=== PATIENT | female | born 1990 | race Caucasian/White ===

== ENCOUNTER 2022-09-14 01:29 | Day surgery (SDC) | payer OTHER, SELFPAY ==
[2022-09-05 08:30] VITALS: BMI 20.7
--- NOTE | 2022-09-05 08:38 | PC.NURSE ---
Report to the Outpatient Waiting Room, entrance under the green pavilion located off [facility], at time _1000__ on date _09/14/22. Planned Procedure Time: _1200_. Time changes happen often and if your time is changed the preop area will call you the afternoon before. - You and your visitor will be asked to self-screen and do not enter if you have any COVID symptoms. - A mask is optional within the hospital at this time. Patients may have clear liquids (water, carbonated beverages, clear teas, apple juice) until 3 hours prior to surgery with a maximum of 20 ounces. - No food from midnight until time of surgery - Infants may have breast milk until 4 hours before surgery, infant formula 6 hours prior to surgery. - Children will be allowed to drink immediately following surgery. If applicable, please bring a bottle or sippy cup to assist with drinking. Juice, water, soda, and popsicles are readily available. For infants on formula, please bring formula the day of surgery. Pacifiers are allowed. Take the following medications with a SIP of water the morning of surgery: FLUOXETINE, OLANZAPINE DO NOT STOP ANY OF YOUR OTHER PRESCRIPTION MEDICATIONS PRIOR TO SURGERY ?EXCEPT THE FOLLOWING Medications to discontinue per physician NONE Date to take last dose Please no make-up, nail cook islander, hairspray, perfume, deodorant, or body powder the day of surgery. No jewelry (including any body piercings) or valuables the day of surgery, leave them at home. Please take a shower or bath the night before, or the morning of, surgery with an antibacterial soap. Wear comfortable, loose fitting clothing. Children are encouraged to wear pajamas. - Jewelry must be removed prior to entering the operating room. Rings and piercings that are not removed may be cut off. - The hospital will not accept responsibility for valuables. - Please leave all valuables, including medications, at home the day of surgery. If you are going home after surgery, a licensed driver education instructor must drive you home. - NO public transportation without another adult if you receive anesthesia. - We recommend that an adult stay with you for 24 hours following discharge. - We also recommend that you do not drive, make important decision, drink alcoholic beverages, or take any drugs that were not prescribed by your health care provider for at least 24 hours after your discharge time. For Pediatric surgeries, we recommend two adults accompany the child home. Follow any additional instructions given to you from your surgeon. If you or anyone in your household have experienced Covid symptoms in the past week, please notify your surgeon or the nurse liaison at the phone number below for possible testing. Telephone instructions given to _PATIENT_and asked if any additional questions and then verbalized understanding. Patient advised to call surgeon office or pre surgery nurse liaison [phone] if any additional questions.
--- NOTE | 2022-09-13 12:31 | PM.IMHP ---
H&P: HPI History of Present Illness Date/Time: 09/13/22 12:31 Chief Complaint: desires permanent sterilization Narrative: 32-year-old who presents requesting permanent sterilization.? Patient is currently using NuvaRing for contraception.? Patient states she has a new male sexual partner.? Patient states her and her partner no longer desire to conceive.? Patient states her partner does not trust the NuvaRing.? Patient is not interested in any other forms of contraception.? Patient states she has thought about having a tubal for some time. Review of Systems Cardiovascular: Cardiovascular: Denies chest pain, Denies leg edema, Denies palpitations, Denies dyspnea and Denies dyspnea on exertion Respiratory: Respiratory: Denies cough, Denies dyspnea and Denies dyspnea on exertion Gastrointestinal: Gastrointestinal: Denies abdominal pain, Denies constipation, Denies diarrhea, Denies nausea and Denies vomiting Genitourinary: Genitourinary: Denies hematuria, Denies urinary frequency, Denies dysuria, Denies pelvic pain, Denies urinary incontinence and Denies vaginal discharge Neurologic: Reports system reviewed and no additional complaints, except as documented Psychiatric: Psychiatric: Reports no additional psychiatric complaints Endocrine: Endocrine: Denies palpitations PMFSH Past Medical History Medical History Anxiety Bladder diverticulitis Depression Diverticula, bladder Kidney infection UTI (urinary tract infection) Vaginal discharge Surgical History Surgical History H/O adenoidectomy H/O dilation and curettage x 2 History of hysteroscopy History of tonsillectomy Family History Family History Mother Hypertension Social History Social History Years smoked: 8 Smoking status: Current every day smoker Tobacco type: e-cigarettes/vaping Additional smoking assessment comments: CURRENT EVERYDAY VAPER Alcohol intake: current Alcohol use details: 2 PER MONTH Substance use: former Substance use type: marijuana Last use: vape Lack of Transportation: YES Lack of Food: Often True Current Housing: I Have Housing Concerned About Future Housing: YES Difficulty Paying Gas/Electric Bills: YES Difficulty Paying for Meds: YES Currently Unemployed: No Education: Associate Degree Difficulty w/ Childcare or Family Care: YES Living arrangements: with family Occupation/Education: occupation Gender identity (if verbalized by the patient): Female Sexual Orientation (if Verbalized by the Patient): Straight or Heterosexual Meds Home Medications and Allergies Home Medications Medication Instructions Recorded Confirmed Type etonogestrel 0.12 mg-ethinyl 1 vag ring vaginal ONCE #3 ea 04/12/22 09/05/22 Rx estradiol 0.015 mg/24 hr vaginal ring (NuvaRing) fluoxetine 20 mg capsule 20 mg PO DAILY 09/05/22 09/05/22 History olanzapine 5 mg tablet 5 mg PO HS 09/05/22 09/05/22 History tramadol 50 mg tablet 50 mg PO PRN PRN Pain 09/05/22 09/05/22 History Allergies Allergy/AdvReac Type Severity Reaction Status Date / Time Sulfa (Sulfonamide Allergy Intermediate RASH POSS. Verified 09/05/22 08:28 Antibiotics) RESPIR. DISTRESS Penicillins Allergy Mild RASH Verified 09/05/22 08:28 Exam Const: General: no acute distress Eyes: EOM: EOMs intact bilaterally Neck: Neck: supple Thyroid: thyroid normal Chest: Breast/axilla inspection: normal inspection of the breasts Breast/axilla palpation: normal palpation of the breasts, normal palpation of the axillae and no axillary lymphadenopathy Resp: Effort & Inspection: normal respiratory effort Auscultation: clear to auscultation bilaterally Cardio: Rate: regular rate Rhythm: regular rhythm GI: Inspection:
--- NOTE | 2022-09-13 13:39 | WPDANESEPPF ---
Anes - Initial Pre Proc Eval Procedure: Operation Date: 09/14/22 12:00 Proposed Procedures p Bilateral Laparoscopic Salpingectomy - Calos Cabral MD Date/Time: 09/13/22 13:39 Surgeon: Calos Cabral MD Pre Op Diagnosis: desires sterilization Patient Data Age: 32 Gender: F Height: 1.7 m Weight: 60 kg Allergies Allergy/AdvReac Type Severity Reaction Status Date / Time Sulfa (Sulfonamide Allergy Intermediate RASH POSS. Verified 09/14/22 10:22 Antibiotics) RESPIR. DISTRESS Penicillins Allergy Mild RASH Verified 09/14/22 10:22 Home Medications Medication Instructions Recorded Confirmed Type etonogestrel 0.12 mg-ethinyl 1 vag ring vaginal ONCE #3 ea 04/12/22 09/05/22 Rx estradiol 0.015 mg/24 hr vaginal ring (NuvaRing) fluoxetine 20 mg capsule 20 mg PO DAILY 09/05/22 09/14/22 History olanzapine 5 mg tablet 5 mg PO HS 09/05/22 09/14/22 History tramadol 50 mg tablet 50 mg PO PRN PRN Pain 09/05/22 09/05/22 History Patient hx anesthesia problems: none Family hx anesthesia problems: none Results Review: All pre-operative results and documents have been reviewed as part of the pre-operative evaluation. [facility] Past Medical History Medical History (Updated 09/13/22 @ 13:39 by Jt Alvarado DO) ADHD Anxiety Bipolar disorder Bladder diverticulitis Depression Diverticula, bladder Kidney infection UTI (urinary tract infection) Vaginal discharge Surgical History Surgical History H/O adenoidectomy H/O dilation and curettage x 2 History of hysteroscopy History of tonsillectomy Family History Family History Mother Hypertension Social History Social History Years smoked: 8 Smoking status: Current every day smoker Tobacco type: e-cigarettes/vaping Additional smoking assessment comments: CURRENT EVERYDAY VAPER Alcohol intake: current Alcohol use details: 2 PER MONTH Substance use: former Substance use type: marijuana Last use: vape Lack of Transportation: YES Lack of Food: Often True Current Housing: I Have Housing Concerned About Future Housing: YES Difficulty Paying Gas/Electric Bills: YES Difficulty Paying for Meds: YES Currently Unemployed: No Education: Associate Degree Difficulty w/ Childcare or Family Care: YES Living arrangements: with family Occupation/Education: occupation Gender identity (if verbalized by the patient): Female Sexual Orientation (if Verbalized by the Patient): Straight or Heterosexual Anes - Eval Final PreProcedure Day of Procedure 09/13/22 13:39 Patient weight: normal Heart: regular rate and rhythm Lungs: clear to auscultation Airway: Mallampati scale class II Neurological: alert and oriented Last oral intake: >/= 8 hours ASA classification: II Emergent: no Anesthetic plan: proceed Anesthesia type and monitoring: general ETT and standard monitoring Results Review: All pre-operative results and documents have been reviewed as part of the pre-operative evaluation. Informed Consent: The patient's anesthetic plan and its attendant risks and benefits were discussed with the patient/family/POA. Questions were solicited and answers provided to the satisfaction of the patient/family/POA.
[2022-09-14] VITALS (7 sets, daily range): BP systolic 110–157; BP diastolic 64–100; PULSE 71–117; RESP 9–16; TEMP 36.2–36.6; O2SAT 99–100; BMI 21.4
[2022-09-14] MEDS: LACTATED RINGERS 1,000 ML 30 ML IV CONT ×2 (10:40→13:49)
[2022-09-14] MEDS: ACETAMINOPHEN 500 MG TABLET 1000 MG PO (10:50)
[2022-09-14] MEDS: KETOROLAC 15 MG/ML VIAL (*BKC) IV PUSH (10:51)
--- NOTE | 2022-09-14 10:54 | SUR.PREOP ---
1054- Patient notified procedure start time will be delayed. Patient verbalized understanding and denying needs at this time.
--- NOTE | 2022-09-14 12:02 | WPDHPUPDATE1 ---
History and Physical Update Update Date/Time: 09/14/22 12:02 History and Physical has been reviewed, including an updated exam of the patient. There are NO changes in the patient's condition. Risks, benefits, and alternatives have been discussed and questions answered. Patient agrees to proceed with procedure.
--- NOTE | 2022-09-14 13:32 | P.OP_ITS ---
Procedure Note - Detailed Date of Procedure 09/14/22 Pre-op Diagnosis desires sterilization Post-op Diagnosis Same Procedure Performed laparoscopic bilateral salpingectomy Surgeon Calos Cabral MD Anesthesia General Indications desires permanent sterilization Findings normal appearing uterus, bilateral fallopian tubes and ovaries Description of Procedure the patient was taken to the operating room where general endotracheal anesthesia was undertaken and found to be adequate. She was then prepped and draped in the dorsal lithotomy position. A pre-operative team brief and time- out were completed. A catheter was placed to drain the bladder. Speculum was placed in the vagina and the cervix was identified. An acorn uterine manipulator was placed as well as single-tooth tenaculum on the anterior lip of the cervix. Attention was then turned to the abdomen which was anesthetized umbilical he with injected anesthetic. A 5 mm skin incision was made in the umbilicus. A 5 mm optical trocar was then placed with direct visualization of the abdominal layers during placement. The trocar stylette was removed and the camera was used to verify intra-abdominal placement.felipe was used to verify intra-abdominal placement. CO2 insufflation was then connected and The abdominal cavity was insufflated. General abdominal and pelvic survey was performed. Two other laparoscopic port site incisions were made approximately 2 cm superior and medial of the ASIS bilaterally. Both fallopian tubes were inspected and identified out to the level of the fimbriae. The Fimbriated end of the left fallopian tube was then grasped with a blunt grasper. the fallopian tube was then transected along its inferior aspect along the mesosalpinx with the LigaSure device. Transection was carried out to the fallopian tubes insertion into the uterine fundus. The fallopian tube was then completely transected from the uterus using the LigaSure device. This procedure was repeated for the right fallopian tube. Good hemostasis was maintained throughout. The transected fallopian tubes were removed from the abdomen through the 5 mm laparoscopic port. The surgical field was inspected and again could hemostasis was noted. At this point the procedure was ended. The abdomen was desufflated. All laparoscopic ports were removed from the abdomen. Abdominal incisions were closed with 4-0 Vicryl in a subcuticular fashion.. The acorn manipulator and tenaculum were removed from the vagina. The cervix was inspected and good hemostasis was obtained. Sponge, lap and needle counts were correct. The patient tolerated the procedure well. The patient was taken out of dorsal lithotomy. anesthesia was reversed. The patient was taken to PACU in stable condition. Estimated Blood Loss 10 Urine Output 100 Drains No Packing No Pathology Yes ( Bilateral fallopian tubes) Complications No immediate complications Condition Stable Disposition PACU [facility] Billing Surgery - Charge Forward: Surgery Billing
[2022-09-14] MEDS: fentaNYL CITRATE INJ (*CRX) 100 MCG/2 ML VIAL 25 MCG IV PUSH ×2 (14:12→14:15)
[2022-09-14] MEDS: oxyCODONE HCL (*CRX) 5 MG TAB IR PO (15:10)
== END 2022-09-14 15:25 | disposition home or self-care (01) ==
PROVIDERS: PCP Family Medicine; Visit Provider Student in an Organized Health Care Education/Training Program
PROC: (CPT 49320; principal; 2022-09-14 12:00)
DX: Z30.2 Encounter for sterilization (principal); N83.8 Other noninflammatory disorders of ovary, fallopian tube and broad ligament; F41.9 Anxiety disorder, unspecified; F32.A Depression, unspecified; F17.290 Nicotine dependence, other tobacco product, uncomplicated; F12.90 Cannabis use, unspecified, uncomplicated; Z79.891 Long term (current) use of opiate analgesic
CPT/HCPCS: 58661; 88302; A9270; J0330; J1100; J1885; J2250; J2405; J2704; J3010; J7030; J7120

== ENCOUNTER 2022-09-18 13:46 | Emergency (ER) | payer OTHER, MEDICAID, SELFPAY ==
--- NOTE | ~2022-09-18 | CT_ITS ---
EXAMINATION: CT abdomen pelvis w con DATE: 09/18/2022 16:56 INDICATION: Abdominal pain. Fever. Postop. TECHNIQUE: Computed tomography (CT) of the abdomen and pelvis was performed with 100 mL Omnipaque 350 intravenous contrast. Automated exposure control and iterative reconstruction technique were employe d. The dose-length product was 259.20 mGy-cm. COMPARISON: CT abdomen and pelvis 07/06/2016 FINDINGS: The visualized portions of the lung bases are clear without pneumonia or pleural effusion. The heart size is normal. No pericardial effusion. There are cysts in the liver measuring up to 6 mm. The gallbladder, spleen, pancreas, adrenal glands, and left kidney are normal. There is a 1.8 cm hyp odense mass in right kidney with adjacent fat stranding, consistent with pyelonephritis. There is an umbilical hernia containing fat. There are no dilated loops of bowel. The appendix is normal. There a re no pathologically enlarged lymph nodes. There is no ascites. There is diffuse bladder wall thickening, consistent with cystitis. There is mild lumbar spondylosis. IMPRESSION: 1. Cystitis and right-sided pyelonephritis. Reviewed, dictated and finalized at location A.
--- NOTE | ~2022-09-18 | XR_ITS ---
EXAMINATION: XR chest 2V DATE: 09/18/2022 16:26 INDICATION: Fever. Postop. TECHNIQUE: Frontal and lateral views of the chest were obtained. COMPARISON: Chest 2 views 01/04/2018 FINDINGS: There is no pneumonia, pleural effusion, or pneumothorax. The heart size is normal. IMPRESSION: 1. No acute cardiopulmonary disease. Reviewed, dictated and finalized at location A.
[2022-09-18 13:48] VITALS: BP 130/65; PULSE 104; RESP 20; TEMP 38; O2SAT 100
[2022-09-18 15:04] VITALS: BP 113/75; PULSE 116; RESP 22; O2SAT 100
[2022-09-18 15:09] LABS: Hematocrit 39.3 % (37.0-47.0); Hemoglobin 12.7 g/dL (12.0-15.0); Mean Corpuscular HGB Conc 32.3 g/dl (32-36); Mean Corpuscular Hemoglobin 27.7 pg (26-34); Mean Corpuscular Volume 85.8 fl (80-100); Mean Platelet Volume 9.1 fl (7.4-10.4); Platelet Count Result 370 k/mm3 (150-375); Red Blood Count 4.58 M/mm3 (4.2-5.4); Red Cell Distribution Width 13.7 % (11.5-14.5); White Blood Count 13.2 K/mm3 (4.5-10.0)
[2022-09-18 15:21] LABS: Alanine Aminotransferase 22 U/L (6-35); Albumin Level 4.1 g/dL (3.5-5.1); Alkaline Phosphatase 54 U/L (38-126); Anion Gap 6 mmol/L (8-16); Aspartate Amino Transferase 26 U/L (14-36); Bilirubin,Total 0.6 mg/dL (0.2-1.3); Blood Urea Nitrogen 15 mg/dL (7-17); Calcium 8.8 mg/dL (8.4-10.2); Carbon Dioxide 26 mmol/L (22-30); Chloride 99 mmol/L (98-107); Estimated CRCL calculation 92 ml/min; Estimated Glomerular Filt Rate > 60; Glucose 109 mg/dL (65-110); Lipase 38 U/L (23-300); Potassium 3.6 mmol/L (3.4-5.0); Sodium 131 mmol/L (137-145)
[2022-09-18] MEDS: ACETAMINOPHEN 500 MG TABLET 1000 MG PO (15:29)
--- NOTE | 2022-09-18 15:38 | ED.GENADULT ---
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 Cabral performed a bilateral removal of her ovaries and she had gone home and was otherwise doing well until yesterday she developed a fever of 102 for which she took Motrin and improved. However, the fever returned, prompting her to seek further evaluation. Patient notes that she last took Motrin today at 10 AM. Patient admits to a couple episodes of non-bloody and non-bilious emesis yesterday and today. Patient admits to being able to tolerate PO and has otherwise been able to maintain hydration. Patient denies diarrhea. Patient states that she has an extensive history of urinary tract infections and she called her primary care physician today and they prescribed her Macrobid. However, she hasn?t picked it up yet and came here because this felt like it was more than her history of urinary tract infection. Patient does admit to dysuria over the past couple days. Patient denies hematuria, urinary urgency, urinary frequency, lower extremity, swelling, cough, chest pain, shortness of breath, sore throat, rhinorrhea, rash, abnormal, vaginal discharge, vaginal bleeding. Patient admits to a mild amount of generalized lower abdominal discomfort, and which she describes this as a sore feeling, but has not associated with anything, making it better nor worse, rather it appears to constantly be present at a low intensity. Patient denies radiation of the pain. Related Data Home Medications Medication Instructions Recorded Confirmed fluoxetine 20 mg capsule 20 mg PO DAILY 09/05/22 09/14/22 olanzapine 5 mg tablet 5 mg PO HS 09/05/22 09/14/22 tramadol 50 mg tablet 50 mg PO PRN PRN Pain 09/05/22 09/05/22 Allergies Allergy/AdvReac Type Severity Reaction Status Date / Time Sulfa (Sulfonamide Allergy Intermediate RASH POSS. Verified 09/18/22 14:03 Antibiotics) RESPIR. DISTRESS Penicillins Allergy Mild RASH Verified 09/18/22 14:03 [facility] Past Medical History Medical History ADHD Anxiety Bipolar disorder Bladder diverticulitis Depression Diverticula, bladder Kidney infection UTI (urinary tract infection) Vaginal discharge Surgical History Surgical History H/O adenoidectomy H/O dilation and curettage x 2 History of hysteroscopy History of tonsillectomy Family History Family History Mother Hypertension Social History Social History Years smoked: 8 Smoking status: Current every day smoker Tobacco type: e-cigarettes/vaping Additional smoking assessment comments: CURRENT EVERYDAY VAPER Alcohol intake: current Alcohol use details: 2 PER MONTH Substance use: former Substance use type: marijuana Last use: vape Lack of Transportation: YES Lack of Food: Often True Current Housing: I Have Housing Concerned About Future Housing: YES Difficulty Paying Gas/Electric Bills: YES Difficulty Paying for Meds: YES Currently Unemployed: No Education: Associate Degree Difficulty w/ Childcare or Family Care: YES Living arrangements: with family Occupation/Education: occupation Gender identity (if verbalized by the patient): Female Sexual Orientation (if Verbalized by the Patient): Straight or Heterosexual Exam Const: General: ill appearing (mildly) Orientation/consciousness: patient oriented x3 HENMT: Head: normal to inspection Mouth: Yes Normal oral and palatal mucosa present and Yes dry mucous membranes Throat: posterior oropharynx normal Eyes: Conjunctivae: conjunctivae norm
[2022-09-18 15:46] LABS: Band Neutrophils Percent 5 % (0-6); Lymphocytes Absolute Manual 1.05 K/mm3 (1.1-4.5); Monocytes Absolute Manual 1.05 K/mm3 (0.1-0.90); Monocytes Percent Manual 8 % (3-9); Neutrophils Absolute Manual 11.08 K/mm3 (1.7-7.2); Neutrophils Percent Manual 79 % (46-73); Platelet Estimate Adequate (Adequate); Total Cells Counted 100
[2022-09-18 15:47] LABS: Schistocytes None Seen (NORMAL)
[2022-09-18] MEDS: MORPHINE SULFATE (*CRX) 4 MG/ML INJ IV PUSH (16:15)
[2022-09-18 16:21] LABS: Partial Thromboplastin Time 27.5 SECONDS (22.3-36.8); Prothrombin Time 13.8 Seconds (11.1-14.7)
[2022-09-18 16:26] LABS: Alanine Aminotransferase 21 U/L (6-35); Albumin Level 3.9 g/dL (3.5-5.1); Alkaline Phosphatase 48 U/L (38-126); Anion Gap 6 mmol/L (8-16); Aspartate Amino Transferase 26 U/L (14-36); Bilirubin,Total 0.5 mg/dL (0.2-1.3); Blood Urea Nitrogen 15 mg/dL (7-17); CRP 4.4 mg/dL (<1.0); Calcium 8.6 mg/dL (8.4-10.2); Carbon Dioxide 22 mmol/L (22-30); Chloride 101 mmol/L (98-107); Estimated CRCL calculation 106 ml/min; Estimated Glomerular Filt Rate > 60; Glucose 116 mg/dL (65-110); Lipase 36 U/L (23-300); Potassium 3.6 mmol/L (3.4-5.0); Sodium 129 mmol/L (137-145)
[2022-09-18 16:28] LABS: Appearance Urine Cloudy (Clear); Bacteria Urine 4+ /hpf; Bilirubin Urine Negative (Negative); Blood Urine 1+ (Negative); Color Urine Yellow (Yellow); Glucose Urine UA Negative (Negative); Ketones Urine Negative (Negative); Leukocyte Esterase Ur 3+ LEU/UL (Negative); Nitrate Urine Negative (Negative); Non Pathogenic Casts 0-2; Protein Urine 1+ mg/dL (Negative); RBC Urine 21-50 /hpf (0-2); Specific Grav Ur 1.021 (1.001-1.035); Squamous Epithelial Cell Urine Many /hpf (Few); WBC Urine >100 /hpf; pH Urine 7.5 (5.0-9.0)
[2022-09-18 16:34] LABS: Add Urine Microscopic? YES
[2022-09-18 16:54] LABS: SARS-CoV-2 RNA PCR Negative (Negative)
[2022-09-18] MEDS: levoFLOXacin 750 MG/D5W 150 ML 750 MG/150 ML BAG 100 MG IVPB (17:19)
[2022-09-18 17:45] VITALS: BP 105/63; PULSE 86; RESP 18; O2SAT 98
[2022-09-18] MEDS: IBUPROFEN 600 MG TABLET PO (18:37)
[2022-09-18 19:06] VITALS: BP 110/68; PULSE 66; RESP 14; TEMP 36.8; O2SAT 100
== END 2022-09-18 19:17 | disposition home or self-care (01) ==
PROVIDERS: Emergency Provider Student in an Organized Health Care Education/Training Program; PCP Family Medicine
DX: N12 Tubulo-interstitial nephritis, not specified as acute or chronic (principal); F17.290 Nicotine dependence, other tobacco product, uncomplicated; Z20.822 Contact with and (suspected) exposure to COVID-19; Z98.890 Other specified postprocedural states; Z79.899 Other long term (current) drug therapy
CPT/HCPCS: 36415; 71046; 74177; 80053; 81001; 81025; 83605; 83690; 85025; 85610; 85730; 86140; 87040; 87086; 87088; 87147; 87635; 96365; 96366; 96375; 99284; A9270; J1956; J2270; J7120; Q9967

== ENCOUNTER 2023-01-23 08:27 | Emergency (ER) | payer BC, SELFPAY ==
--- NOTE | ~2023-01-23 | CT_ITS ---
EXAMINATION: CT abdomen pelvis w con DATE: 01/23/2023 09:56 INDICATION: Abdominal pain. Nausea and vomiting. TECHNIQUE: Computed tomography (CT) of the abdomen and pelvis was performed with 100 mL Omnipaque 350 intravenous contrast. Automated exposure control and iterative reconstruction technique were employe d. The dose-length product was 257.51 mGy-cm. COMPARISON: CT abdomen and pelvis 09/18/2022 FINDINGS: The visualized portions of the lung bases demonstrate minimal atelectasis. No pleural effus ion. The heart size is normal. No pericardial effusion. There is a 7 mm cyst in the liver. The gallbl adder, spleen, pancreas, adrenal glands, and left kidney are normal. There is focal cortical thinning of right kidney. The appendix is normal. There is an umbilical hernia containing fat. There are no p athologically enlarged lymph nodes. There is no free intraperitoneal fluid. There is mild lumbar spon dylosis. IMPRESSION: 1. Umbilical hernia containing fat. Reviewed, dictated and finalized at location A. [employer]
[2023-01-23 08:55] VITALS: BP 120/81; PULSE 87; RESP 16; TEMP 37.2; O2SAT 98
[2023-01-23 09:21] LABS: Basophils Percent Auto 0.3 % (0.2-1.2); Eosinophils Percent Auto 0.2 % (0-4.4); Hematocrit 42.8 % (37.0-47.0); Hemoglobin 13.6 g/dL (12.0-15.0); Immature Granulocyte Absolute 0.07 K/mm3 (0.00-0.031); Immature Granulocyte Percent A 0.7 % (0-0.5); Lymphocytes Absolute Auto 0.22 K/mm3 (0.9-3.2); Lymphocytes Percent Auto 2.2 % (18.3-44.2); Mean Corpuscular HGB Conc 31.8 g/dl (32-36); Mean Corpuscular Hemoglobin 27.1 pg (26-34); Mean Corpuscular Volume 85.3 fl (80-100); Mean Platelet Volume 8.6 fl (7.4-10.4); Monocytes Absolute Auto 0.3 K/mm3 (0.1-0.6); Monocytes Percent Auto 3.3 % (2.6-8.5); Neutrophils Absolute Auto 9.4 K/mm3 (1.3-6.7); Neutrophils Percent Auto 93.3 % (45.5-73.1); Platelet Count Result 385 k/mm3 (150-375); Red Blood Count 5.02 M/mm3 (4.2-5.4); Red Cell Distribution Width 13.8 % (11.5-14.5); White Blood Count 10.1 K/mm3 (4.5-10.0)
[2023-01-23 09:31] LABS: Alanine Aminotransferase 14 U/L (6-35); Albumin Level 4.7 g/dL (3.5-5.1); Alkaline Phosphatase 60 U/L (38-126); Anion Gap 9 mmol/L (8-16); Aspartate Amino Transferase 18 U/L (14-36); Bilirubin,Total 1.3 mg/dL (0.2-1.3); Blood Urea Nitrogen 18 mg/dL (7-17); Calcium 8.8 mg/dL (8.4-10.2); Carbon Dioxide 26 mmol/L (22-30); Chloride 106 mmol/L (98-107); Estimated CRCL calculation 91 ml/min; Estimated Glomerular Filt Rate > 60; Glucose 103 mg/dL (65-110); Lipase 54 U/L (23-300); Potassium 3.6 mmol/L (3.4-5.0); Sodium 141 mmol/L (137-145)
[2023-01-23] MEDS: ONDANSETRON INJ 4 MG/2 ML VIAL IV PUSH (09:36)
[2023-01-23] MEDS: SODIUM CHLORIDE 0.9% IV 1,000 ML 999 ML IV CONT (09:36)
[2023-01-23] MEDS: FAMOTIDINE 20 MG/2 ML VIAL IV PUSH (09:36)
[2023-01-23] MEDS: KETOROLAC 15 MG/ML VIAL (*BKC) IV PUSH (09:37)
--- NOTE | 2023-01-23 09:37 | ED.NAVMDI ---
HPI - Nausea/Vomiting/Diarrhea General Chief complaint: Nausea/Vomiting/Diarrhea Stated complaint: vomiting and diarrhea Time Seen by Provider: 01/23/23 09:08 Source: patient Mode of arrival: ambulatory Limitations: no limitations History of Present Illness HPI Narrative: This is a 32 year old female that presents to the ER for abdominal pain and diarrhea. Ongoing since this morning. Also reports nausea and vomiting. Reports she has not been able to keep much down. Reports she is currently on Cefdinir for UTI. She has not had improvement in her dysuria. She has been taking this for about 5 days. Denies fevers. Related Data Home Medications Medication Instructions Recorded Confirmed fluoxetine 20 mg capsule 20 mg PO DAILY 09/05/22 09/14/22 cefdinir 300 mg capsule mg 01/23/23 01/23/23 zolpidem 10 mg tablet mg 01/23/23 Allergies Allergy/AdvReac Type Severity Reaction Status Date / Time Sulfa (Sulfonamide Allergy Intermediate RASH POSS. Verified 01/23/23 09:37 Antibiotics) RESPIR. DISTRESS Penicillins Allergy Mild RASH Verified 01/23/23 09:37 Review of Systems Review of Systems: CONSTITUTIONAL: Denies fever GASTROINTESTINAL: Reports abdominal pain, nausea, vomiting, and diarrhea. GENITOURINARY: Reports dysuria All systems reviewed & are unremarkable except as noted in HPI and below PMFSH Past Medical History Medical History (Updated 01/23/23 @ 11:01 by Kerri Christiansen PA-C) ADHD Anxiety Bipolar disorder Bladder diverticulitis Depression Diverticula, bladder Kidney infection UTI (urinary tract infection) Vaginal discharge Surgical History Surgical History (Updated 10/02/22 @ 10:16 by Shira Hardy CMA) H/O adenoidectomy H/O bilateral salpingectomy H/O dilation and curettage x 2 History of hysteroscopy History of tonsillectomy Family History Family History Mother Hypertension Social History Social History Years smoked: 8 Smoking status: Current every day smoker Tobacco type: e-cigarettes/vaping Additional smoking assessment comments: CURRENT EVERYDAY VAPER Alcohol intake: current Alcohol use details: 2 PER MONTH Substance use: former Substance use type: marijuana Last use: vape Lack of Transportation: YES Lack of Food: Often True Current Housing: I Have Housing Concerned About Future Housing: YES Difficulty Paying Gas/Electric Bills: YES Difficulty Paying for Meds: YES Currently Unemployed: No Education: Associate Degree Difficulty w/ Childcare or Family Care: YES Living arrangements: with family Occupation/Education: occupation Gender identity (if verbalized by the patient): Female Sexual Orientation (if Verbalized by the Patient): Straight or Heterosexual Exam Narrative: GENERAL: Well-appearing, well-nourished, and in no acute distress. HEAD: Normocephalic, atraumatic. EYES: EOMI. CHEST: Clear to auscultation. No respiratory distress. No wheezes rales or rhonchi HEART: Regular rate and rhythm. No murmur heard. Normal peripheral pulses. ABDOMEN: Soft, nondistended, normal active bowel sounds. Tender to palpation in epigastrium, without guarding EXTREMITIES: Normal range of motion. No edema. SKIN: Warm, dry, no rash. NEURO: No focal deficits. Alert and oriented x3. PSYCH: Normal mood and affect Course Course Emergency Course: Patient was updated on workup. Resting comfortably. Able to tolerate p.o. challenge Vital Signs Vital signs: Vital Signs Temperature 99 F 01/23/23 08:55 Pulse Rate 87 01/23/23 08:55 Respiratory Rate 16 01/23/23 08:55 Blood Pressure 120/81 01/23/23 08:55 Pulse Oximetry 98 01/23/23 08:55 Oxygen Delivery Room Air 01/23/23 08:55 Temperature 99 F 01/23/23 08:55 Pulse Rate 87 01/23/23 08:55 Respiratory Rate 16 01/23/23 08:55 Blood Pressure 120/81 01/12
[2023-01-23 09:56] LABS: Appearance Urine Clear (Clear); Color Urine Yellow (Yellow)
[2023-01-23 09:57] LABS: Bacteria Urine None Seen /hpf; Bilirubin Urine Negative (Negative); Blood Urine Trace (Negative); Glucose Urine UA Negative (Negative); Ketones Urine Trace mg/dL (Negative); Leukocyte Esterase Ur Negative LEU/UL (Negative); Nitrate Urine Negative (Negative); Non Pathogenic Casts 0-2; Protein Urine Trace mg/dL (Negative); Specific Grav Ur 1.028 (1.001-1.035); Squamous Epithelial Cell Urine Few /hpf (Few); Urobilinogen Urine 0.2 mg/dL (<2.0); WBC Urine 0-5 /hpf
[2023-01-23 10:00] LABS: Add Urine Microscopic? YES
[2023-01-23 11:22] VITALS: BP 131/88; PULSE 78; RESP 16; O2SAT 99
== END 2023-01-23 11:24 | disposition home or self-care (01) ==
PROVIDERS: Emergency Medicine; Emergency Provider Physician Assistant; PCP Family Medicine
DX: K52.9 Noninfective gastroenteritis and colitis, unspecified (principal); F17.290 Nicotine dependence, other tobacco product, uncomplicated; F90.9 Attention-deficit hyperactivity disorder, unspecified type; F41.9 Anxiety disorder, unspecified; F32.A Depression, unspecified
CPT/HCPCS: 36415; 74177; 80053; 81001; 81025; 83690; 85025; 96361; 96374; 96375; 99284; J1885; J2405; J7030; Q9967

== ENCOUNTER 2024-04-06 06:33 | Emergency (ER) | payer BC, SELFPAY ==
--- NOTE | ~2024-04-06 | XR_ITS ---
EXAMINATION: XR chest 1V portable DATE: 04/06/2024 07:49 INDICATION: Shortness of breath. Cough. TECHNIQUE: A single frontal view of the chest was obtained. COMPARISON: Chest 2 views 09/18/2022, CT abdomen and pelvis 01/23/2023 FINDINGS: There is no pneumonia, pleural effusion, or pneumothorax. The heart size is normal. IMPRESSION: 1. No acute cardiopulmonary disease. Reviewed, dictated and finalized at location A. ER [facility]
[2024-04-06 06:34] VITALS: BP 112/69; PULSE 105; RESP 17; TEMP 36.7; O2SAT 97
--- OUTSIDE RECORDS SUMMARY | 2024-04-06 06:35 | XMS_ITS | Encounter Summary ---
Author Organization [facility] Address [address] [place] [address] Phone Care Team Providers Care Tree Trimming Line Technician Name Role Phone Raffaele Melton MD Primary Care Provider [phone] Lillie Worthy MD Unavailable Nam Weber APRN, PASTRYCOOK Unavailable + [phone] Provider, None Primary Care Provider Unavailabl Gurpreet Scales MD Primary Care Provider [phone] Audi Gandara MD Unavailable [phone] Carol Mcintosh DRILL PRESS TENDER, PASTRYCOOK Unavailable [phone] Reason for Visit * Reason Comments Medication Refill Encounter Details Date Type Department Care Team (Late st Contact Info) Description 11/18/2022 Refill [facility] - [facility] - [place] [address] [place] [address] Gia Jj APRN, PASTRYCOOK [address] [address] Medication Refill Social History Tobacco Use Types Packs/Day Years Used Date Smoking Tobacco: Never Smokeless Tobacco: Never Alcohol Use Standard Drinks/Week Comments Not Currently 0 (1 standard drink = 0.6 oz pur e alcohol) once in a blue pyle. PHQ-2 Answer Date Recorded Total Score - Questions 1-9 23 01/12 Education Answer Date Recorded What is the highest level of school you have completed or the highest degree you have received? Associate degree: occupational, technical, or vocational program 09/19/2022 Sexually Active Control Partners Comments Yes I.U.D. Male Comments No Sex and Gender Information Value Date Recorded Sex Assigned at Female 01/26/2023 11:31 PM CHIEF ADMINISTRATIVE OFFICER Legal Sex Female 10:30 PM CHIEF ADMINISTRATIVE OFFICER Gender Identity Female 01/26/2023 11:31 PM CHIEF ADMINISTRATIVE OFFICER Sexual Orientation Not on file COVID-19 Exposure Response Date Recorded In the last 10 days, have yo u been in contact with someone who was confirmed or suspected to have Coronavirus/COVID-19? No / Unsure 10/26/2022 4:18 PM CDT documented as of this encounter Miscellaneous Notes * Telephone Encounter - Teresa Tompkins RN - 11/20/2022 10:50 AM CDT Medication warning Per nursing clinical judgement, provider to review and approve the medication(s) order(s) if appropriate. Requested Prescriptions Pending Prescriptions Disp Refills FLUoxetine (PROzac) 20 MG Capsule [Pharmacy Med Name: FLUOXETINE 20MG CAPSULES] 90 Capsule 1 Sig: TAKE 1 CAPSULE BY MOUTH DAILY [facility] (6 Month Refill Only) Protocol Passed - 11/18/2022 1:49 PM Passed - No test in the past 12 months or most recent test was negative Passed - No active on record Passed - Visit with relevant provider in past 6 months or upcoming 90 days Recent Visits Date Type Provider Dept 10/26/22 Office Visit Carolina Muñiz PAC [facility] 09/19/22 Office Visit Raffaele Melton MD [facility] 08/17/22 Office Visit Gia Jj APRN, PASTRYCOOK [facility] Showing recent visits within past 182 days and meeting all other requirements Future Appointments Date Type Provider Dept 12/21/22 Appointment Raffaele Melton MD [facility] Showing future appointments within next 90 days and meeting all other requirements Passed - Patient has established therapy with SSRI for at least 6 months Passed - Has an encounter in the past 6 months with a depression, anxiety, adjustment disorder, OCD, or PTSD visit diagnosis documented in this encounter Plan of Treatment Upcoming Encounters Date Type Department Care Team (Late st Contact Info) Description 04/08/2024 6:00 PM CHIEF ADMINISTRATIVE OFFICER Office Visit [facility] - [facility] [address] [place] [address] Gurpreet Arroyo MD [id number] [address] documented as of this encounter Goals Goal Patient Goal Type Associated Problems Recent Progress Patient-Stated? Author Patient to report a decrease in the intensity and frequency of depressive symptoms Behavioral Health On track(2021 11:37 AM CHIEF ADMINISTRATIVE OFFICER) No Veronica Díaz, COVER MAKING MACHINE OPERATOR Note: to have reduction of depression symptoms. Goal Reviewed with: patient Readiness to change: Making a change Department associated with goal: [facility] Steps to achieve goal: will attend counseling/psychotherapy sessions at least once monthly, utilizing individual and/or group sessions to express thoughts and feelings. to identify, verbalize and process at least three contributing factors/triggers to anxiety and depression. to identify and verbalize at least three actions/skills to prevent and/or cope with anxiety and depression. to put into action, at least one time weekly, for one month, an action/skill to prevent and or cope with depression. documented as of this encounter Visit Diagnoses Diagnosis Current moderate episode of major depressive disorder without prior episode (HCC) documented in this encounter Additional Health Concerns Infection Onset Date Last Indicated Resolved Time COVID - 19 01/26/2023 01/30/2023 02/09/2023 12:1 6 AM CHIEF ADMINISTRATIVE OFFICER Assessment Noted Time PHQ-9 Depression Total Score: 23 01/25/ 022 2:00 PM CHIEF ADMINISTRATIVE OFFICER documented as of this encounter Care Teams Tree Trimming Line Technician Relationship Specialty Start Date End Date Raffaele Melton MD PCP - General Family Medicine 08/18/20 08/27/23 Provider, None MS PCP - General 08/28/23 10/08/23 Gurpreet Arroyo MD #2 [facility] [address] [place] [address] PCP - General Family Medicine 10/09/23 [place] [address] [address] Obstetrics & Gynecology 02/22/21 Nam Weber APRN, PASTRYCOOK [address]2 [place] [address] Nurse Practitioner Advanced Practice Nurse 01/16/23 Audi Gandara MD [address]2 [facility] [address] [place] [address] Consulting Physician Urology 09/25/23 Carol Mcintosh APRN, PASTRYCOOK [address] [place] [address] Nurse Practitioner Advanced Practice Nurse 12/27/23 documented as of this encounter
--- OUTSIDE RECORDS SUMMARY | 2024-04-06 06:35 | XMS_ITS | Encounter Summary ---
Author Organization [facility] Address [address] [place] [address] Phone Care Team Providers Care Doweler Name Role Phone Lillie Worthy MD Unavailable Nam Weber HANSARD REPORTER, ORDER EDITOR Unavailable + [phone] Gurpreet Arroyo MD Primary Care Provider [phone] Audi Gandara MD Unavailable [phone] Carol Mcintosh HANSARD REPORTER, ORDER EDITOR Unavailable [phone] Encounter Details Date Type Department Care Team (Late st Contact Info) Description 04/02/2024 Results Follow-Up [facility] - Family Medicine [facility] [address] [place] [id number] Carol Mcintosh, HANSARD REPORTER, ORDER EDITOR [address] [place] [address] Social History Tobacco Use Types Packs/Day Years Used Date Smoking Tobacco: Former Cigarettes 0.3 5.2 0 02/12/2006 - 02/12/2011 Smokeless Tobacco: Never Alcohol Use Standard Drinks/Week Comments Not Currently 1 (1 standard drink = 0.6 oz pur e alcohol) once in a blue pyle. [facility] Utilities Answer Date Recorded In the past 12 months has e electric, gas, oil, or water company threatened to shut off services in your home? No 10/08/2023 Social Connection and Isolation Panel [NHANES] A nswer Date Recorded In a typical week, how many times do you talk on the phone with family, friends, or neighbors? Never 10/08/2023 How often do you get together with friends or re latives? Never 10/08/2023 How often do you attend orthodox or restorationist serv ices? Never 10/08/2023 Do you belong to any clubs o r organizations such as orthodox groups, unions, fraternal or athletic groups, or school groups? No 10/08/2023 How often do you attend meet ings of the clubs or organizations you belong to? Never 10/08/2023 Are you , , di vorced, , never , or living with a partner? 10/08/2023 AUDIT-C Answer Date Recorded Q1: How often do you have a drink containing alc ohol? Monthly or less 10/08/2023 Q2: How many drinks containi ng alcohol do you have on a typical day when you are drinking? 1 or 2 10/08/2023 Q3: How often do you have si x or more drinks on one occasion? Never 10/08/2023 Overall Financial Resource Strain (CARDIA) Answe r Date Recorded How hard is it for you to pa y for the very basics like food, housing, medical care, and heating? Very hard 10/08/2023 PHQ-2 Answer Date Recorded Total Score - Questions 1-9 2 11/13 [facility] - Occupational Stress Questionnaire Answer Date Recorded Do you feel stress - tense, restless, nervous, or anxious, or unable to sleep at night because your mind is troubled all the time - these days? To some extent 10/08/2023 Exercise Vital Sign Answer Date Recorde d On average, how many days pe r week do you engage in moderate to strenuous exercise (like a brisk walk)? 5 days 10/08/2023 On average, how many minutes do you engage in exercise at this level? 60 min 10/08/2023 Hunger Vital Sign Answer Date Recorded Within the past 12 months, y ou worried that your food would run out before you got the money to buy more. Often true 10/08/19 24 Within the past 12 months, t he food you bought just didn't last and you didn't have money to get more. Often true 10/08/2023 PRAPARE - Transportation Answer Date Re corded In the past 12 months, has l ack of transportation kept you from medical appointments or from getting medications? No 09/13 In the past 12 months, has l ack of transportation kept you from meetings, work, or from getting things needed for daily living? No 10/08/2023 Housing Stability Vital Sign Answer Quincy e Recorded In the last 12 months, was t here a time when you were not able to pay the mortgage or rent on time? Yes 10/08/2023 In the past 12 months, how m any times have you moved where you were living? 0 10/08/2023 At any time in the past 12 m [facility], were you homeless or living in a care home (including now)? No 10/08/2023 Education Answer Date Recorded What is the highest level of school you have completed or the highest degree you have received? Associate degree: occupational, technical, or vocational program 09/19/2022 Sexually Active Control Partners Comments Not Currently I.U.D. Male Comments No Sex and Gender Information Value Date Recorded Sex Assigned at Female 01/26/2023 11:31 PM LIVE IN HOUSEKEEPER Legal Sex Female 10:30 PM LIVE IN HOUSEKEEPER Gender Identity Female 01/26/2023 11:31 PM LIVE IN HOUSEKEEPER Sexual Orientation Not on file documented as of this encounter Plan of Treatment Upcoming Encounters Date Type Department Care Team (Late st Contact Info) Description 04/08/2024 6:00 PM LIVE IN HOUSEKEEPER [facility] Visit [facility] [address] [place] [address] Gurpreet Arroyo MD [id number] [address] documented as of this encounter Goals Goal Patient Goal Type Associated Problems Recent Progress Patient-Stated? Author Patient to report a decrease in the intensity and frequency of depressive symptoms Behavioral Health On track(2021 11:37 AM LIVE IN HOUSEKEEPER) No Veronica Díaz, CHIEF LIBRARIAN BRANCH OR DEPARTMENT Note: to have reduction of depression symptoms. Goal Reviewed with: patient Readiness to change: Making a change Department associated with goal: [facility] Steps to achieve goal: [...] documented as of this encounter Visit Diagnoses Not on filedocumented in this encounter Additional Health Concerns Assessment Noted Time PHQ-9 Depression Total Score: 2 12/11/19 24 11:18 AM CDT documented as of this encounter Care Teams Doweler Relationship Specialty Start Date End Date Gurpreet Arroyo MD #2 [facility] [address] [place] [address] PCP - General Family Medicine 10/09/23 [place] [id number] [address] Obstetrics & Gynecology 02/22/21 Nam Weber APRN, ORDER EDITOR #[address] [place] [address] Nurse Practitioner Advanced Practice Nurse 01/16/23 Audi Gandara MD #2 [facility] [address] [place] [address] Consulting Physician Urology 09/25/23 Carol Mcintosh APRN, ORDER EDITOR #[address] [place] [address] Nurse Practitioner Advanced Practice Nurse 12/27/23 documented as of this encounter
--- OUTSIDE RECORDS SUMMARY | 2024-04-06 06:35 | XMS_ITS | Clinical Summary ---
Author Organization [facility] Address [address] [place] [address] Phone Care Team Providers Care Slag Mixer Name Role Phone Lillie Worthy MD Unavailable Nam Weber APRN, TECHNICAL SPEC Unavailable [phone] Gurpreet Arroyo MD Primary Care Provider [phone] Audi Gandara MD Unavailable [phone] Carol Mcintosh LOGGING TRUCK DRIVER, TECHNICAL SPEC Unavailable [phone] Allergies Active Allergy Reactions Criticality Noted Date Comments Hydrocodone-Acetaminophen Itching 12/26/2020 Penicillins Hives Medium 05/07/1995 Sulfa Antibiotics Anaphylaxis,Hives,Unknown High Medications cyclobenzaprine (FLEXERIL) 5 MG TabletIndicatio ns:Muscle Spasm Take 1 Tablet by mouth 3 times daily as needed for Muscle spasms. Indications: Muscle Spasm 15 Tablet 12/09/2023 Active ketorolac (TORADOL) 10 MG Tablet Take 1 Tablet by mouth every 6 hours as needed for Mild or more severe pain. 15 Tablet 12/09/2023 Active meclizine (ANTIVERT) 12.5 MG TabletIndicatio ns:Dizziness Take 1 Tablet by mouth every 12 hours as needed for Dizziness. 60 Tablet 3 12/11/2023 Active venlafaxine (EFFEXOR-XR) 75 MG CAPSULE SR 24 HR TAKE 1 CAPSULE BY MOUTH DAILY 90 Capsule 1 02/14/2024 Active metroNIDAZOLE (FLAGYL) 500 MG TabletIndicatio ns:Bacterial vaginosis Take 1 Tablet by mouth 2 times daily for 7 days. 14 Tablet 03/12/2024 03/19/19 Active Problems Problem Noted Date Diagnosed Date Acetabular labrum tear 10/27/2021 Anxiety 02/22/2021 Current moderate episode of major depressive disorder without prior episode 10/05/2020 Right foot pain 10/05/2020 Chronic pain of right ankle 10/05/2020 Weight loss, non-intentional 10/05/2020 Encounters Date Type Department Care Team Description 04/02/2024 Results Follow-Up [facility] [address] [place] [address] Carol Mcintosh, ASHWINI, TECHNICAL SPEC 04/01/2024 1:00 PM APPEALS REVIEWER VETERAN - 04/01/2024 11:59 PM APPEALS REVIEWER VETERAN [facility] [address] [place] [address] Carol Mcintosh, LOGGING TRUCK DRIVER, TECHNICAL SPEC Discharge Disposition: Discharged to home or Selfcare 04/01/2024 12:03 PM APPEALS REVIEWER VETERAN - 04/01/2024 12:59 PM APPEALS REVIEWER VETERAN [facility] [address] [place] [address] Carol Mcintosh, LOGGING TRUCK DRIVER, TECHNICAL SPEC Discharge Disposition: Discharged to home or Selfcare 03/31/2024 Travel 03/30/2024 Travel 03/12/2024 Results Follow-Up [facility] [address] [place] [address] Carol Mcintosh, LOGGING TRUCK DRIVER, TECHNICAL SPEC Bacterial vaginosis (Primary Dx) 03/11/2024 Travel 03/10/2024 Telephone [facility]etric[facility] Gyne[facility] [address] [place] [address] Carol Mcintosh, LOGGING TRUCK DRIVER, TECHNICAL SPEC 03/07/2024 1:30 PM APPEALS REVIEWER VETERAN [facility] [place] [address] [place] [address] Carol Mcintosh, LOGGING TRUCK DRIVER, TECHNICAL SPEC Encounter for well woman exam with routine gynecological exam (Primary Dx); Screening for malignant neoplasm of cervix; Screening examination for STI; Vaginal odor; Breast pain, right Discharge Disposition: Discharged to home or Selfcare 03/07/2024 Travel 02/13/2024 [facility] [place] [address] Gurpreet Arroyo MD Medication Refill 01/17/2024 11:15 AM APPEALS REVIEWER VETERAN [facility] [place] [address] [facility], Primary Manager Project [facility] Visit for TB skin test (Primary Dx) Discharge Disposition: Discharged to home or Selfcare 01/15/2024 11:15 AM APPEALS REVIEWER VETERAN [facility] [place] [address] [facility], Primary [facility] Visit for TB skin test (Primary Dx) Discharge Disposition: Discharged to home or Selfcare 01/15/2024 Travel 01/08/2024 8:00 AM APPEALS REVIEWER VETERAN Immunization [facility] [place] [address] [place] [address] [facility], Primary Manager [facility] Visit for TB skin test (Primary Dx) Discharge Disposition: Discharged to home or Selfcare 01/06/2024 Travel from Last 3 Months Immunizations Immunization Administration Dates Next Due Covid-19, Mrna, Lnp-s, PF, 1 00 mcg/0.5 mL Dose (Moderna) 03/03/2020,02/10/2020 Hepatitis A Vaccine 12/20/2018 Human Papillomavirus Vaccine (HPV), quadrivalent 09/07/2006,07/06/2006 Influenza Vaccine 11/26/2020 Influenza,Split Virus,Trivalent,Injectable,PF 10/26/2023 MMR Vaccine 08/01/2017,02/01/1995,07/10/1991 Meningococcal Group B OMV 11/29/2023,10/29/2023 TDAP Vaccine 09/02/2022,07/30/2017 Family History Medical History Relation Name Comments Cancer Father Romaine Thyroid Disease Father Romaine Cirrhosis Mother Jose G Liver Depression Mother Jose G Hypertension Mother Jose G Migraines Mother Jose G Relation Name Status Comments Father Romaine Alive Mother Jose G Alive Social History Tobacco Use Types Packs/Day Years Used Date Smoking Tobacco: Former Cigarettes 0.3 5.2 0 02/12/2006 - 02/12/2011 Smokeless Tobacco: Never Tobacco Cessation:Counseling Given: Not Answered Alcohol Use Standard Drinks/Week Comments Not Currently 1 (1 standard drink = 0.6 oz pur e alcohol) once in a blue pyle. [facility] Utilities Answer Date Recorded In the past 12 months has [employer], gas, oil, or water company threatened [...] Never 10/08/2023 How often do you attend episcopalian or caodaism serv ices? Never 10/08/2023 Do you belong to any clubs o r organizations such as episcopalian groups, unions, fraternal or athletic groups, or [...] Recorded Total Score - Questions 1-9 2 10 10/2023 [facility] of Occupat ional [facility] - Occupational Stress Questionnaire Answer Date [...] any time in the past 12 m [facility], were you homeless or living in a intermediate (including now)? No 10/08/2023 Education Answer Date Recorded What is the highest level of school you have completed or the highest degree you have received? Associate degree: occupational, technical, or vocational program 09/19/2022 Sexually Active [employer] Comments Not Currently I.U.D. Male Comments No Sex and Gender Information Value Date Recorded Sex Assigned at Female 01/26/2023 11:31 PM APPEALS REVIEWER VETERAN Legal Sex Female 10:30 PM APPEALS REVIEWER VETERAN Gender Identity Female 01/26/2023 11:31 PM APPEALS REVIEWER VETERAN Sexual Orientation Not on file Last Filed Vital Signs Vital Sign Reading Time Taken Comments Blood Pressure 113/79 03/07/2024 1:32 PM APPEALS REVIEWER VETERAN Pulse 125 03/07/2024 1:32 PM APPEALS REVIEWER VETERAN Temperature 36.1 C (96.9 F) 12/25/2023 4:53 PM APPEALS REVIEWER VETERAN Respiratory Rate 20 03/07/2024 1:32 PM APPEALS REVIEWER VETERAN Oxygen Saturation 97% 03/07/2024 1:32 PM APPEALS REVIEWER VETERAN Inhaled Oxygen Concentration - - Weight 68.9 kg (152 lb) 03/07/2024 1:32 PM APPEALS REVIEWER VETERAN Height 170.2 cm (5' 7 ) 03/07/2024 1:32 PM APPEALS REVIEWER VETERAN Body Mass Index 23.81 03/07/2024 1:32 PM APPEALS REVIEWER VETERAN Plan of Treatment Upcoming Encounters Date Type Department Care Team (Late st Contact Info) Description 04/08/2024 6:00 PM APPEALS REVIEWER VETERAN Office Visit [facility] [address] [place] [address] Gurpreet Arroyo MD [address] [address] Health Maintenance Due Date Last Done Comments Hepatitis B Immunization (1 of 3 - 19+ 3-dose series) 2009 Pap Smear 03/07/2027 03/07/2024, 03/21/2021 Cervical Cancer Screening (CCS) 03/07/2029 HPV/Cotest 03/07/2029 03/07/2024 Td Immunization Every 10 Years (Adults With 1 Tdap) 09/02/2032 09/02/2022, 07/30/2017 Respiratory Syncytial Virus (RSV) Immunization (Adult) (1 - 1-dose 75+ series) 2065 SARS-COV-2 Immunization Discontinued 03/03/19, 03/03/2020, 02/10/2020, Additional history exists DTaP/Tdap/Td Immunization Discontinued 09/02/2022, Influenza Immunization Completed 10/26/2023, 2020 Hepatitis C Virus (HCV) Screening Completed 03/11/2024, 03/22/2021 Meningococcal Immunization (ACWY) Aged Out No longer eligible based on patient's age to complete this topic Pneumococcal Immunization Combined Aged Out No longer eligible based on patient's age to complete this topic Rotavirus Immunization Aged Out No lo nger eligible based on patient's age to complete this topic Goals Goal Patient Goal Type Associated Problems Recent Progress Patient-Stated? Author Patient to report a decrease in the intensity and frequency of depressive symptoms Behavioral Health On track(2021 11:37 AM APPEALS REVIEWER VETERAN) No Veronica Díaz, DRYING OVEN ATTENDANT Note: to have reduction of depression symptoms. Goal Reviewed with: patient Readiness to change: Making a change Department associated with goal: [facility] Steps to achieve goal: [...] to prevent and or cope with depression. Procedures Procedure Name Priority Date/Time Associated Diagnosis Comments [facility] US BREAST LIMITED RT Routine 04/01/2024 2:24 PM APPEALS REVIEWER VETERAN Breast pain, right [facility] DIAG BILATERAL DIGITAL W CAD W DONALDO Routine 04/01/2024 1:31 PM APPEALS REVIEWER VETERAN Breast pain, right HSV TYPE II IGG ANTIBODY Routine 03/11/2024 3:27 PM APPEALS REVIEWER VETERAN Screening examination for STI HSV TYPE I IGG ANTIBODY Routine 03/11/2024 3:27 PM APPEALS REVIEWER VETERAN Screening examination for STI HIV 1 & 2 ANTIBODY & ANTIGEN SCREEN Routine 03/11/2024 3:27 PM APPEALS REVIEWER VETERAN Screening examination for STI HERPES SIMPLEX 1 & 2 ANTIBODIES IGG Routine 03/11/2024 3:27 PM APPEALS REVIEWER VETERAN Screening examination for STI SYPHILIS IGG/IGM W/REFLEX Routine 03/11/2024 3:27 PM APPEALS REVIEWER VETERAN Screening examination for STI HEPATITIS C ANTIBODY Routine 03/11/2024 3:27 PM APPEALS REVIEWER VETERAN Screening examination for STI PATHOLOGY CYTOLOGY BINDER CASER Routine 03/07/2024 2:32 PM APPEALS REVIEWER VETERAN Encounter for well woman exam with routine gynecological exam Screening for malignant neoplasm of cervix HUMAN PAPILLOMA VIRUS (HPV) Routine 03/07/2024 2:32 PM APPEALS REVIEWER VETERAN Encounter for well woman exam with routine gynecological exam Screening for malignant neoplasm of cervix CHLAMYDIA & GC DNA PROBE Routine 03/07/2024 2:32 PM APPEALS REVIEWER VETERAN Screening examination for STI CHLAMYDIA & GC DNA PROBE > 12 Routine 03/07/2024 2:32 PM APPEALS REVIEWER VETERAN Screening examination for STI VAGINITIS SCREEN, MOLECULAR Routine 03/07/2024 2:32 PM APPEALS REVIEWER VETERAN Vaginal odor TB INTRADERMAL TEST Routine 01/17/2024 Visit for TB skin test INFECTIOUS DISEASE PROCEDURE 01/15/2024 12:00 AM APPEALS REVIEWER VETERAN from Last 3 Months Results * SCOT US BREAST LIMITED RT (04/01/2024 2:24 PM APPEALS REVIEWER VETERAN) Anatomical Region Laterality Modality breast Right Ultrasound 04/01/2024 12:4 7 PM APPEALS REVIEWER VETERAN Narrative 04/02/2024 10:00 AM APPEALS REVIEWER VETERAN - SCOT DIAG BILATERAL DIGITAL W CAD W DONALDO - SCOT US BREAST LIMITED RT BILATERAL DIGITAL DIAGNOSTIC MAMMOGRAM 3D/2D WITH CAD WITH MEDIOLATERAL OBLIQUE CRANIOCAUDAL AND RIGHT ULTRASOUND: 04/01/2024 The study was acquired using digital technology and interpreted from soft copy. Current study was also evaluated with ICAD version 7.2. 2D digital mammographic views, as well as 3D digital tomosynthesis were performed in the CC and MLO projections. CLINICAL: Baseline. Patient reports right medial breast fullness and pain for 6 weeks. She reports spontaneous nipple discharge, green in color for about three years from the right nipple. No personal history of cancer. Family history of breast cancer unknown. COMPARISONS: No prior exams were available for comparison. BREAST TISSUE:The breasts are heterogeneously dense, which may obscure small masses. FINDINGS: BILATERAL DIAGNOSTIC MAMMOGRAM: No significant masses or calcifications are seen in either breast on the mammogram. No lesions are seen at the area of concern in the medial right breast or subareolar right breast. Further evaluation was obtained with sonography. TARGETED RIGHT BREAST ULTRASOUND: No lesions are seen underlying the area of pain at the 3 o'clock position of the right breast, 5 cm from the nipple. At the 9 o'clock subareolar right breast, there is a 1.3 x 1.1 x 0.5 cm hypoechoic lesion which is likely a complex cyst or cluster of cysts. This will be classified as probably benign. IMPRESSION: OVERALL STUDY BIRADS: CATEGORY 3: PROBABLY BENIGN Complex cystic lesion at the 9 o'clock subareolar right breast is probably benign. A follow-up ultrasound in 6 months is recommended to demonstrate stability. Clinical evaluation of the nipple discharge is recommended. If indicated, an MRI could be obtained. The results and recommendations were discussed with the patient. Electronically signed by: Blessing Darby M.D. ll/:04/01/2024 14:12:14 Tour Manager(s): [facility] Edmonds, [facility]; RT Samia(R)(M), [facility] letter sent: Birad 3 Followup Reading location: [facility] OVERALL STUDY BIRADS: Category 3: Probably Benign Procedure Note Blessing Darby MD - 04/02/2024 - SCOT DIAG BILATERAL DIGITAL W CAD W DONALDO - SCOT US BREAST LIMITED RT BILATERAL DIGITAL DIAGNOSTIC MAMMOGRAM 3D/2D WITH CAD WITH MEDIOLATERAL OBLIQUE CRANIOCAUDAL AND RIGHT ULTRASOUND: 04/01/2024 The study was acquired using digital technology and interpreted from soft copy. Current study was also evaluated with ICAD version 7.2. 2D digital mammographic views, as well as 3D digital tomosynthesis were performed in the CC and MLO projections. CLINICAL: Baseline. Patient reports right medial breast fullness and pain for 6 weeks. She reports spontaneous nipple discharge, green in color for about three years from the right nipple. No personal history of cancer. Family history of breast cancer unknown. COMPARISONS: No prior exams were available for comparison. BREAST TISSUE:The breasts are heterogeneously dense, which may obscure small masses. FINDINGS: BILATERAL DIAGNOSTIC MAMMOGRAM: No significant masses or calcifications are seen in either breast on the mammogram. No lesions are seen at the area of concern in the medial right breast or subareolar right breast. Further evaluation was obtained with sonography. TARGETED RIGHT BREAST ULTRASOUND: No lesions are seen underlying the area of pain at the 3 o'clock position of the right breast, 5 cm from the nipple. At the 9 o'clock subareolar right breast, there is a 1.3 x 1.1 x 0.5 cm hypoechoic lesion which is likely a complex cyst or cluster of cysts. This will be classified as probably benign. IMPRESSION: OVERALL STUDY BIRADS: CATEGORY 3: PROBABLY BENIGN Complex cystic lesion at the 9 o'clock subareolar right breast is probably benign. A follow-up ultrasound in 6 months is recommended to demonstrate stability. Clinical evaluation of the nipple discharge is recommended. If indicated, an MRI could be obtained. The results and recommendations were discussed with the patient. Electronically signed by: Blessing Darby M.D. ll/:04/01/2024 14:12:14 Tour Manager(s): MONA Edmonds, [facility]; RT Samia(R)(M), [facility] letter sent: Birad 3 Followup Reading location: [facility] OVERALL STUDY BIRADS: Category 3: Probably Benign us Carol Mcintosh APRN, TECHNICAL SPEC IMG MAMMO ORDERABLES Fin al Result * SCOT DIAG BILATERAL DIGITAL W CAD W DONALDO (04/01/2024 1:31 PM APPEALS REVIEWER VETERAN) Anatomical Region Laterality Modality breast Bilateral Mammography 04/01/2024 12:4 7 PM APPEALS REVIEWER VETERAN Narrative 04/02/2024 10:00 AM APPEALS REVIEWER VETERAN - SCOT DIAG BILATERAL DIGITAL W CAD W DONALDO - SCOT US BREAST LIMITED RT BILATERAL DIGITAL DIAGNOSTIC MAMMOGRAM 3D/2D WITH CAD WITH MEDIOLATERAL OBLIQUE CRANIOCAUDAL AND RIGHT ULTRASOUND: 04/01/2024 The study was acquired using digital technology and interpreted from soft copy. Current study was also evaluated with ICAD version 7.2. 2D digital mammographic views, as well as 3D digital tomosynthesis were performed in the CC and MLO projections. CLINICAL: Baseline. Patient reports right medial breast fullness and pain for 6 weeks. She reports spontaneous nipple discharge, green in color for about three years from the right nipple. No personal history of cancer. Family history of breast cancer unknown. COMPARISONS: No prior exams were available for comparison. BREAST TISSUE:The breasts are heterogeneously dense, which may obscure small masses. FINDINGS: BILATERAL DIAGNOSTIC MAMMOGRAM: No significant masses or calcifications are seen in either breast on the mammogram. No lesions are seen at the area of concern in the medial right breast or subareolar right breast. Further evaluation was obtained with sonography. TARGETED RIGHT BREAST ULTRASOUND: No lesions are seen underlying the area of pain at the 3 o'clock position of the right breast, 5 cm from the nipple. At the 9 o'clock subareolar right breast, there is a 1.3 x 1.1 x 0.5 cm hypoechoic lesion which is likely a complex cyst or cluster of cysts. This will be classified as probably benign. IMPRESSION: OVERALL STUDY BIRADS: CATEGORY 3: PROBABLY BENIGN Complex cystic lesion at the 9 o'clock subareolar right breast is probably benign. A follow-up ultrasound in 6 months is recommended to demonstrate stability. Clinical evaluation of the nipple discharge is recommended. If indicated, an MRI could be obtained. The results and recommendations were discussed with the patient. Electronically signed by: Blessing Darby M.D. ll/:04/01/2024 14:12:14 Tour Manager(s): MONA Edmonds, [facility]; RT Samia(R)(M), [facility] letter sent: Birad 3 Followup Reading location: [facility] OVERALL STUDY BIRADS: Category 3: Probably Benign Procedure Note Blessing Darby MD - 04/02/2024 - SCOT DIAG BILATERAL DIGITAL W CAD W DONALDO - SCOT US BREAST LIMITED RT BILATERAL DIGITAL DIAGNOSTIC MAMMOGRAM 3D/2D WITH CAD WITH MEDIOLATERAL OBLIQUE CRANIOCAUDAL AND RIGHT ULTRASOUND: 04/01/2024 The study was acquired using digital technology and interpreted from soft copy. Current study was also evaluated with ICAD version 7.2. 2D digital mammographic views, as well as 3D digital tomosynthesis were performed in the CC and MLO projections. CLINICAL: Baseline. Patient reports right medial breast fullness and pain for 6 weeks. She reports spontaneous nipple discharge, green in color for about three years from the right nipple. No personal history of cancer. Family history of breast cancer unknown. COMPARISONS: No prior exams were available for comparison. BREAST TISSUE:The breasts are heterogeneously dense, which may obscure small masses. FINDINGS: BILATERAL DIAGNOSTIC MAMMOGRAM: No significant masses or calcifications are seen in either breast on the mammogram. No lesions are seen at the area of concern in the medial right breast or subareolar right breast. Further evaluation was obtained with sonography. TARGETED RIGHT BREAST ULTRASOUND: No lesions are seen underlying the area of pain at the 3 o'clock position of the right breast, 5 cm from the nipple. At the 9 o'clock subareolar right breast, there is a 1.3 x 1.1 x 0.5 cm hypoechoic lesion which is likely a complex cyst or cluster of cysts. This will be classified as probably benign. IMPRESSION: OVERALL STUDY BIRADS: CATEGORY 3: PROBABLY BENIGN Complex cystic lesion at the 9 o'clock subareolar right breast is probably benign. A follow-up ultrasound in 6 months is recommended to demonstrate stability. Clinical evaluation of the nipple discharge is recommended. If indicated, an MRI could be obtained. The results and recommendations were discussed with the patient. Electronically signed by: Blessing Darby M.D. ll/:04/01/2024 14:12:14 Tour Manager(s): MONA Edmonds, [facility]; RT Samia(R)(M), [facility] letter sent: Renae 3 Followup Reading location: [facility] OVERALL STUDY BIRADS: Category 3: Probably Benign us Carol Mcintosh LOGGING TRUCK DRIVER, TECHNICAL SPEC IMG MAMMO ORDERABLES Fin al Result * HIV 1 & 2 ANTIBODY & ANTIGEN SCREEN (03/11/2024 3:27 PM APPEALS REVIEWER VETERAN) HIV 1 & 2 ANTIBODY & ANTIGEN SCREEN NON DETECTED NON DETECTED 03/11/2024 10:22 PM APPEALS REVIEWER VETERAN [facility] Blood Venipuncture / Unknown 03/11/2024 3:27 PM APPEALS REVIEWER VETERAN 03/11/2024 3:37 PM APPEALS REVIEWER VETERAN us Carol Mcintosh APRN, CNP LAB SEND OUTS Final Re sult Performing Organization Address City/[facility]/ZIP Co de Phone Number [facility] [address] [place] [address], [place] * SYPHILIS IGG/IGM W/REFLEX (03/11/2024 3:27 PM APPEALS REVIEWER VETERAN) SYPHILIS IGG/IGM Nonreactive Nonreactive 03/11/2024 10:31 PM APPEALS REVIEWER VETERAN [facility] Comment: No serologic evidence of infection to Treponema pallidum (syphilis). Repeat testing may be considered in patients with suspected acute or primary syphilis in 2 to 4 weeks. Antibody testing was performed by multiplex flow immunoassay on the BioPlex platform. Blood Venipuncture / Unknown 03/11/2024 3:27 PM APPEALS REVIEWER VETERAN 03/11/2024 3:37 PM APPEALS REVIEWER VETERAN us Carol Mcintosh APRN TECHNICAL SPEC IMMUNOLOGY ORDERABLES Fi nal Result Performing Organization Address [facility] Co de Phone Number [facility] [address] [place] [address], [place] * HSV TYPE II IGG ANTIBODY (03/11/2024 3:27 PM APPEALS REVIEWER VETERAN) HSV TYPE 2 IGG AB <0.2 AI 03/11/2024 10:31 PM APPEALS REVIEWER VETERAN [facility] Comment: <0.9 Negative. No detectable HSV-2 IgG antibody. 0.9 - 1.0 Equivocal >=1.1 Positive Antibody testing was performed by multiplex flow immunoassay on the BioPlex platform. Blood Venipuncture / Unknown 03/11/2024 3:27 PM APPEALS REVIEWER VETERAN 03/11/2024 3:37 PM APPEALS REVIEWER VETERAN us Carol Mcintosh APRN, TECHNICAL SPEC CHEMISTRY ORDERABLES Fin al Result Performing Organization Address City/[facility] Co de Phone Number [facility] [address] [place] [address], [place] * HSV TYPE I IGG ANTIBODY (03/11/2024 3:27 PM APPEALS REVIEWER VETERAN) HSV TYPE 1 IGG AB >8.0 AI 03/11/2024 10:31 PM APPEALS REVIEWER VETERAN [facility] Comment: <0.9 Negative. No detectable HSV-1 IgG antibody. 0.9 - 1.0 Equivocal >=1.1 Positive Blood Venipuncture / Unknown 03/11/2024 3:27 PM APPEALS REVIEWER VETERAN 03/11/2024 3:37 PM APPEALS REVIEWER VETERAN Carol Mcintosh LOGGING TRUCK DRIVER, TECHNICAL SPEC CHEMISTRY ORDERABLES Fin al Result [facility] [address] [place] [address], [place] * HEPATITIS C ANTIBODY (03/11/2024 3:27 PM APPEALS REVIEWER VETERAN) [facility] hepatitis C antibody 0.10 <1 S/CO 03/11/2024 11:28 PM APPEALS REVIEWER VETERAN [facility] Comment: Signal/Cutoff ratio < 0.79 is Nondetected Signal/Cutoff ratio 0.80-0.99 is Grayzone Signal/Cutoff ratio > 0.99 is Detected Supplemental assays are recommended if signal/cutoff ratio is >/=1.00. Signal/cutoff ratio result >/= 5.00 is 97% predictive of positivity for recombinant immunoblot assay (RIBA) and will be reported to the [place] Department of Public Health as required. Blood Venipuncture / Unknown 03/11/2024 3:27 PM APPEALS REVIEWER VETERAN 03/11/2024 3:36 PM APPEALS REVIEWER VETERAN Carol Mcintosh LOGGING TRUCK DRIVER, TECHNICAL SPEC CHEMISTRY ORDERABLES Fin al Result [facility] [address] [place] [address], [place] * CHLAMYDIA & GC DNA PROBE > 12 (03/07/2024 2:32 PM APPEALS REVIEWER VETERAN) [facility] CHLAMYDIA DNA NEGATIVE NEGATIVE 03/08/2024 5:40 AM APPEALS REVIEWER VETERAN [facility] Comment: Presumed negative for C. trachomatis. A negative result does not preclude C. trachomatis infection because results are dependent on adequate specimen collection, absence of inhibitors, and sufficient DNA to be detected. This test was performed using GIGI 5800 Real Time PCR. GC DNA NEGATIVE NEGATIVE 03/08/2024 5:40 AM APPEALS REVIEWER VETERAN [facility] Comment: Presumed negative for N. gonorrhoeae. A negative result does not preclude N. gonorrhoeae infection because results are dependent on adequate specimen collection, absence of inhibitors, and sufficient DNA to be detected. This test was performed using GIGI 5800 Real Time PCR. Other (Cervix/Endocerv ix/Vaginal) Non-Phlebotomy Collection / Unknown 03/07/2024 2:32 PM APPEALS REVIEWER VETERAN 03/07/2024 2:32 PM APPEALS REVIEWER VETERAN us Carol Mcintosh APRN, TECHNICAL SPEC MICROBIOLOGY - GENERAL O RDERABLES Final Result Performing Organization Address [facility] Co de Phone Number [facility] [address] [place] [address], * (ABNORMAL) VAGINITIS SCREEN, MOLECULAR (03/07/2024 2:32 PM APPEALS REVIEWER VETERAN) TRICHOMONAS NOT DETECTED NOT DETECTED 03/08/2024 1:33 AM APPEALS REVIEWER VETERAN [facility] BACTERIAL VAGINOSIS DETECTED(A) NOT DETECTED 03/08/2024 1:33 AM APPEALS REVIEWER VETERAN [facility] LAURY NOT DETECTED NOT DETECTED 03/08/2024 1:33 AM APPEALS REVIEWER VETERAN [facility] Comment: Laury group Not detected with the following possible Laury species: Laury albicans and/or Laury tropicalis and/or Laury parapsilosis and/or Laury dubliniensis LAURY GLABRATA NOT DETECTED NOT DETECTED 03/08/2024 1:33 AM APPEALS REVIEWER VETERAN [facility] LAURY KRUSEI NOT DETECTED NOT DETECTED 03/08/2024 1:33 AM APPEALS REVIEWER VETERAN [facility] Other VAGINAL STRUCTURE / Unknown Non-Phlebotomy Collection / Unknown 03/07/2024 2:32 PM APPEALS REVIEWER VETERAN 03/07/2024 2:32 PM APPEALS REVIEWER VETERAN us Carol Mcintosh APRN, TECHNICAL SPEC MICROBIOLOGY - GENERAL O RDERABLES Final Result [facility] [address] [place] [address], [place] * PATHOLOGY CYTOLOGY BINDER CASER (03/07/2024 2:32 PM APPEALS REVIEWER VETERAN) SPECIMEN ADEQUACY Satisfactory for evaluation. Endocervical/transf ormation zone component is present. 03/13/2024 8:28 AM APPEALS REVIEWER VETERAN [facility] DESCRIPTIVE DIAGNOSIS NEGATIVE FOR INTRAEPITHELIAL LESIONS OR MALIGNANCY. 03/13/2024 8:28 AM APPEALS REVIEWER VETERAN [facility] at 0828 APPEALS REVIEWER VETERAN OTHER FINDINGS Predominance of coccobacilli present consistent with shift in vaginal helena. Marked, acute inflammation noted. 03/13/2024 8:28 AM APPEALS REVIEWER VETERAN [facility] Automated Examination Analysis of this sample has been assisted by an automated imaging and review system ([employer] System, [employer], [place], [place]). This case is further evaluated and finalized by a pourer metal and/or pathologist. 03/13/2024 8:28 AM APPEALS REVIEWER VETERAN [facility] Disclaimer The PAP smear is a screening test designed to detect cancerous or precancerous cells of the uterine cervix. It is one of the best means available for detection of cervical cancer but still carries an inherent false-negative rate. The consequences of a false-negative PAP result can be minimized by adhering to current screening guidelines. The following are general guidelines recommended by the ACS, ASCP, ASCCP, and ACOG: PAP testing is recommended every three years for women 21-29, Co-Testing , a PAP test in conjunction with an HPV (Human Papillomavirus) test for women ages 30-65, and no PAP or HPV testing for women under the age of 21 or older than 65 unless clinically indicated. 03/13/2024 8:28 AM APPEALS REVIEWER VETERAN [facility] Case Report Gynecologic Cytology Report Case: [id number] Authorizing Provider: Carol Mcintosh APRN, CNP Collected: 03/07/2024 02:32 PM Ordering Location: [facility] - Received: 03/07/2024 02:32 PM Obstetrics & Gynecology - [place] First Screen: Yolanda Sommers Rescreen: Barbara Mcintosh Specimen: TP Screen, Cervix/Endocervix 03/13/2024 8:28 AM APPEALS REVIEWER VETERAN [facility] Other CERVIX UTERI STRUCTURE / Unknown Non-Phlebotomy Collection / Unknown 03/07/2024 2:32 PM APPEALS REVIEWER VETERAN 03/07/2024 2:32 PM APPEALS REVIEWER VETERAN us Carol Mcintosh LOGGING TRUCK DRIVER, TECHNICAL SPEC PATHOLOGY/CYTOLOGY ORDER REINA Final Result [facility] [address] [place] [address], * HUMAN PAPILLOMA VIRUS (HPV) (03/07/2024 2:32 PM APPEALS REVIEWER VETERAN) HPV TYPE 16 NEGATIVE NEGATIVE 03/10/2024 11:32 AM [facility] Comment: A negative high-risk HPV result does not exclude the possibility of future cytologic HSIL or underlying CIN2-3 or cancer. The presence of PCR inhibitors may cause false negative or invalid results. If concentrations of whole blood in the sample exceed 10% (dark red or brown coloration) in PreservCyt solution, there is a likelihood of obtaining a false-negative result. HPV TYPE 18 NEGATIVE NEGATIVE 03/10/2024 11:32 AM [facility] Comment: A negative high-risk HPV result does not exclude the possibility of future cytologic HSIL or underlying CIN2-3 or cancer. The presence of PCR inhibitors may cause false negative or invalid results. If concentrations of whole blood in the sample exceed 10% (dark red or brown coloration) in PreservCyt solution, there is a likelihood of obtaining a false-negative result. HPV OTHER HIGH RISK TYPES, PCR NEGATIVE NEGATIVE 03/10/2024 11:32 AM APPEALS REVIEWER VETERAN [facility] Comment: The following Other High Risk types were not detected: 31, 33, 35, 39, 45, 51, 52, 56, 58, 59, 66, and 68. A negative high-risk HPV result does not exclude the possibility of future cytologic HSIL or underlying CIN2-3 or cancer. The presence of PCR inhibitors may cause false negative or invalid results. If concentrations of whole blood in the sample exceed 10% (dark red or brown coloration) in PreservCyt solution, there is a likelihood of obtaining a false-negative result. HPV ORDER BE USED FOR SCREENING OR DIAGNOSTIC SCREENING 03/10/2024 11:32 AM APPEALS REVIEWER VETERAN [facility] Other Non-Phlebotomy Collection / Unknown 03/07/2024 2:32 PM APPEALS REVIEWER VETERAN 03/07/2024 2:32 PM APPEALS REVIEWER VETERAN Narrative [facility] - 03/10/2024 11:32 AM APPEALS REVIEWER VETERAN This test was performed using GIGI 5800 Real Time PCR. Carol Mcintosh APRN, TECHNICAL SPEC LAB SEND OUTS Final Re sult [facility] [address] [place] [address], [facility] [address] [place] [address] * TB INTRADERMAL TEST (01/17/2024) TB SKIN TEST Negative 01/17/2024 Gurpreet Arroyo MD POINT OF CARE TESTING (MANUAL ) Final Result * INFECTIOUS DISEASE PROCEDURE (01/15/2024 12:00 AM APPEALS REVIEWER VETERAN) 01/15/2024 Provider Scan GEN ORDERS Final Result SCAN from Last 3 Months Insurance [place] [id number] Care Teams Slag Mixer Relationship Specialty Start Date End Date Gurpreet Arroyo MD #2 [facility] [address] [place] [address] PCP - General Family Medicine 10/09/23 [place] [id number] [address] Obstetrics & Gynecology 02/22/21 Nam Weber APRN, TECHNICAL SPEC [address] [place] [address] Nurse Practitioner Advanced Practice Nurse 01/16/23 Audi Gandara MD #2 [facility] [address] [place] [address] Consulting Physician Urology 09/25/23 Carol Mcintosh APRN, TECHNICAL SPEC [address] [place] [address] Nurse Practitioner Advanced Practice Nurse 12/27/23
--- OUTSIDE RECORDS SUMMARY | 2024-04-06 06:35 | XMS_ITS | Encounter Summary ---
Author Organization [facility] Address [address] [facility] [place] [address] Phone Care Team Providers Care Health Education Specialist Name Role Phone Lillie Worthy MD Unavailable Nam Weber ADOPTION COORDINATOR, STRAIGHT SLICING MACHINE OPERATOR Unavailable [phone] Gurpreet Arroyo MD Primary Care Provider [phone] Audi Gandara MD Unavailable [phone] Carol Mcintosh ADOPTION COORDINATOR, STRAIGHT SLICING MACHINE OPERATOR Unavailable [phone] Encounter Details Date Type Department Care Team (Late st Contact Info) Description 03/12/2024 Results Follow-Up [facility] - Family Medicine [facility] [address] [place] [id number] Carol Mcintosh, ADOPTION COORDINATOR, STRAIGHT SLICING MACHINE OPERATOR [address] [place] [address] Bacterial vaginosis (Primary Dx) Social History Tobacco Use Types Packs/Day Years Used Date Smoking Tobacco: Former Cigarettes 0.3 5.2 0 02/12/2006 - 02/12/2011 Smokeless Tobacco: Never Alcohol Use Standard Drinks/Week Comments Not Currently 1 (1 standard drink = 0.6 oz pur e alcohol) once in a blue pyle. [facility] Utilities Answer Date Recorded In the past [...] Never 10/08/2023 How often do you attend yazidi or latter-day serv ices? Never 10/08/2023 Do you belong to any clubs o r organizations such as yazidi groups, unions, fraternal or athletic groups, or [...] Total Score - Questions 1-9 2 11/13 [facility] of Occupat ional [facility] - Occupational Stress Questionnaire Answer Date Recorded [...] any time in the past 12 m [facility], were you homeless or living in a mcc (including now)? No 10/08/2023 Education Answer Date Recorded What is the highest level of school you have completed or the highest degree you have received? Associate degree: occupational, technical, or vocational program 09/19/2022 Sexually Active Control Partners Comments Not Currently I.U.D. Male Comments No Sex and Gender Information Value Date Recorded Sex Assigned at Female 01/26/2023 11:31 PM CLARIFYING PLANT OPERATOR Legal Sex Female 10:30 PM CLARIFYING PLANT OPERATOR Gender Identity Female 01/26/2023 11:31 PM CLARIFYING PLANT OPERATOR Sexual Orientation Not on file documented as of this encounter Plan of Treatment Upcoming Encounters Date Type Department Care Team (Late st Contact Info) Description 04/08/2024 6:00 PM CLARIFYING PLANT OPERATOR Office Visit [facility] - Family Medicine [facility] [address] [place] [address] Gurpreet Arroyo MD [address] [address] documented as of this encounter Goals Goal Patient Goal Type Associated Problems Recent Progress Patient-Stated? Author Patient to report a decrease in the intensity and frequency of depressive symptoms Behavioral [facility] On track(2021 11:37 AM CLARIFYING PLANT OPERATOR) No Veronica Díaz, POLYSOMNOGRAPHY TECHNOLOGIST Note: to have reduction of depression symptoms. Goal Reviewed with: patient Readiness to change: Making a change Department associated with goal: [facility] Steps to achieve [...] as of this encounter Visit Diagnoses Diagnosis Bacterial vaginosis- Primary Vaginitis and vulvovaginitis, unspecified documented in this encounter Additional Health Concerns Assessment Noted Time PHQ-9 Depression Total Score: 2 12/11/19 24 11:18 AM CDT documented as of this encounter Care Teams Health Education Specialist Relationship Specialty Start Date End Date Gurpreet Arroyo MD #[address] [address] PCP - General Family Medicine 10/09/23 [place] [id number] [address] Obstetrics & Gynecology 02/22/21 Nam Weber APRN, STRAIGHT SLICING MACHINE OPERATOR [address] [place] [address] Nurse Practitioner Advanced Practice Nurse 01/16/23 Audi Gandara MD #[address] [address] Consulting Physician Urology 09/25/23 Carol Mcintosh APRN, STRAIGHT SLICING MACHINE OPERATOR [address] [place] [address] Nurse Practitioner Advanced Practice Nurse 12/27/23 documented as of this encounter
--- NOTE | 2024-04-06 07:34 | ED.GENADULT ---
HPI - General Adult General Chief complaint: Upper Respiratory Infection Stated complaint: congestion Time Seen by Provider: 04/06/24 07:18 History of Present Illness HPI narrative: [age] old female presenting to the emergency department for evaluation for cough congestion nausea vomiting. Patient states she was exposed to someone with influenza. Patient began developing symptoms yesterday. Patient did take some Tylenol ibuprofen around 2:00 a.m. but none since. Patient states she is not a smoker but does vape. Related Data Home Medications ?Medication ?Instructions ?Recorded ?Confirmed ?Last Taken ?Type fluoxetine 20 mg capsule 20 mg PO DAILY 09/05/22 09/14/22 09/14/22 History 0700 cefdinir 300 mg capsule mg 01/23/23 01/23/23 Unknown History zolpidem 10 mg tablet mg 01/23/23 Unknown History Allergies Allergy/AdvReac Type Severity Reaction Status Date / Time Sulfa (Sulfonamide Allergy Intermediate RASH POSS. Verified 04/06/24 07:23 Antibiotics) RESPIR. DISTRESS Penicillins Allergy Mild RASH Verified 04/06/24 07:23 Review of Systems Review of Systems: All systems reviewed & are unremarkable except as noted in HPI and below PMFSH Past Medical History Medical History (Updated 04/06/24 @ 08:11 by Holger El MD) ADHD Bipolar disorder Vaginal discharge Diverticula, bladder Depression Anxiety Bladder diverticulitis Kidney infection UTI (urinary tract infection) Surgical History Surgical History (Updated 10/02/22 @ 10:16 by Shira Hardy CMA) H/O bilateral salpingectomy History of hysteroscopy H/O dilation and curettage x 2 H/O adenoidectomy History of tonsillectomy Family History Family History Mother Hypertension Social History Social History Years smoked: 8 Smoking status: Current every day smoker Tobacco type: e-cigarettes/vaping Additional smoking assessment comments: CURRENT EVERYDAY VAPER Alcohol intake: current Alcohol use details: 2 PER MONTH Substance use: former Substance use type: marijuana Last use: vape Lack of Transportation: YES Lack of Food: Often True Current Housing: I Have Housing Concerned About Future Housing: YES Difficulty Paying Gas/Electric Bills: YES Difficulty Paying for Meds: YES Currently Unemployed: No Education: Associate Degree Difficulty w/ Childcare or Family Care: YES Living arrangements: with family Occupation/Education: occupation Gender identity (if verbalized by the patient): Female Sexual Orientation (if Verbalized by the Patient): Straight or Heterosexual Exam Narrative: APPEARANCE: Ill-appearing HEAD: normocephalic, atraumatic. EYES: PERRLA/EOMI, conjunctivae clear. NOSE: Normal no drainage EARS:TMS clear with good light reflex. THROAT: Pharynx clear, no exudate. NECK: Supple. No adenopathy, no masses. RESPIRATORY: Airway patent, respirations nonlabored. Clear to auscultation bilaterally, no rales, rhonchi, wheezing. CARDIOVASCULAR: Regular rate and rhythm without murmurs rubs or gallops. ABDOMINAL: Soft, nontender, nondistended, normal bowel sounds MUSCULOSKELETAL: Moves all extremities. Strength/ROM intact, No edema, No calf tenderness. NEURO: Alert. Cranial nerves II through XII intact. SKIN: Warm, dry. Normal Color Course Vital Signs Vital signs: Vital Signs Temperature 98.1 F 04/06/24 06:34 Pulse Rate 105 H 04/06/24 06:34 Respiratory Rate 17 04/06/24 06:34 Blood Pressure 112/69 04/06/24 06:34 Pulse Oximetry 97 04/06/24 06:34 Oxygen Delivery Room Air 04/06/24 06:34 Temperature 98.1 F 04/06/24 06:34 Pulse Rate 105 H 04/06/24 06:34 Respiratory Rate 17 04/06/24 06:34 Blood Pressure 112/69 04/06/24 06:34 Pulse Oximetry 97 04/06/24 06:34 Oxygen Delivery Room Air 04/06/24 06:34 Medical Decision Making [facility] Narrative Medical decision making narrative: 34-year-old female presenting to the emergency department for evaluation for cough congestion fatigue. Patient did test positive for influenza A. Chest x-ray showed no acute cardiopulmonary disease. Patient will be discharged home with albuterol inhaler for shortness breath and Tessalon Perles for cough. Patient was also advised to take Tylenol and ibuprofen for fever and for body aches. Differential Diagnosis Differential Diagnosis: Pneumonia, COVID, flu, RSV Vital Signs Vital Signs: Vital Signs Temperature 98.1 F 04/06/24 06:34 Pulse Rate 105 H 04/06/24 06:34 Respiratory Rate 17 04/06/24 06:34 Blood Pressure 112/69 04/06/24 06:34 Pulse Oximetry 97 04/06/24 06:34 Oxygen Delivery Room Air 04/06/24 06:34 Temperature 98.1 F 04/06/24 06:34 Pulse Rate 105 H 04/06/24 06:34 Respiratory Rate 17 04/06/24 06:34 Blood Pressure 112/69 04/06/24 06:34 Pulse Oximetry 97 04/06/24 06:34 Oxygen Delivery Room Air 04/06/24 06:34 Lab Data Lab results reviewed: Yes I reviewed the patient's lab results. Labs: Lab Results 04/06/24 Range/Units 06:41 Influenza A (RT-PCR) Positive A (Negative) Influenza B (RT-PCR) Negative (Negative) RSV (RT-PCR) Negative (Negative) SARS-CoV-2 RNA (RT-PCR) Negative (Negative) Imaging Data Radiologist's impression: Impressions Chest X-Ray 04/06/24 07:52 IMPRESSION: 1. No acute cardiopulmonary disease. Discharge Plan Discharge Clinical Impression: Influenza A Patient Disposition: Home, Self-Care Condition: Stable Instructions: Antibiotic Form, Influenza (ED) Additional Instructions: Drink plenty of fluids. Tylenol and ibuprofen for fever and for body aches. Albuterol inhaler for shortness of breath and Tessalon Perles for cough. Have close follow-up with your primary care physician. If you have any questions or concerns then please call or return to the emergency department. Patient Language: [place] Citizen Prescriptions: New benzonatate 100 mg capsule 100 mg PO TID PRN (Reason: cough) Qty: 14 0RF albuterol sulfate 90 mcg/actuation HFA aerosol inhaler 1 puff inhalation QID Qty: 6.7 0RF No Action fluoxetine 20 mg capsule 20 mg PO DAILY zolpidem 10 mg tablet cefdinir 300 mg capsule ondansetron 4 mg tablet,disintegrating 4 mg PO Q8H PRN (Reason: nausea and vomiting) Qty: 14 0RF Follow-up/Referrals: Melton,Raffaele Verdugo MD [Non-Staff] - Stand Alone Forms: Work/School Release IP
--- OUTSIDE RECORDS SUMMARY | 2024-04-06 07:41 | XMS_ITS | Clinical Summary ---
Author Organization [facility] Address [address] [place] [address] Phone Care Team Providers Care Catalyst Manufacturing Operator Name Role Phone Lillie Worthy MD Unavailable Nam Weber APRN, MANAGER MEDICARE MARKETING Unavailable [phone] Gurpreet Arroyo MD Primary Care Provider [phone] Audi Gandara MD Unavailable [phone] Carol Mcintosh APPRENTICE/LINEMAN, MANAGER MEDICARE MARKETING Unavailable [phone] Allergies Active Allergy Reactions Criticality Noted Date [...] Department Care Team Description 04/02/2024 Results Follow-Up [facility] [address] [place] [address] Carol Mcintosh, ASHWINI, MANAGER MEDICARE MARKETING 04/01/2024 1:00 PM SEAT BUILDER - 04/01/2024 11:59 PM SEAT BUILDER [facility] Ul[facility]ound [address] [place] [address] Carol Mcintosh, APPRENTICE/LINEMAN, MANAGER MEDICARE MARKETING Discharge Disposition: Discharged to home or Selfcare 04/01/2024 12:03 PM SEAT BUILDER - 04/01/2024 12:59 PM SEAT BUILDER [facility] Mammography [address] [place] [address] Carol Mcintosh, APPRENTICE/LINEMAN, MANAGER MEDICARE MARKETING Discharge Disposition: Discharged to home or Selfcare 03/31/2024 Travel 03/30/2024 Travel 03/12/2024 Results Follow-Up [facility] [address] [place] [address] Carol Mcintosh, APPRENTICE/LINEMAN, MANAGER MEDICARE MARKETING Bacterial vaginosis (Primary Dx) 03/11/2024 Travel 03/10/2024 Telephone [facility] Obstetrics & Gynecology [facility] #2 [facility] [address] Carol Mcintosh, APPRENTICE/LINEMAN, MANAGER MEDICARE MARKETING 03/07/2024 1:30 PM SEAT BUILDER [facility] [place] [address]2 [facility] [address] Carol Mcintosh, APPRENTICE/LINEMAN, MANAGER MEDICARE MARKETING Encounter for well woman exam with routine gynecological exam (Primary Dx); Screening for malignant neoplasm of cervix; Screening examination for STI; Vaginal odor; Breast pain, right Discharge Disposition: Discharged to home or Selfcare 03/07/2024 Travel 02/13/2024 [facility] [place] [address] Gurpreet Arroyo MD Medication Refill 01/17/2024 11:15 AM SEAT BUILDER [facility]ization [facility] [place] [address] [facility], Primary Carousel Attendant Clinic Visit for TB skin test (Primary Dx) Discharge Disposition: Discharged to home or Selfcare 01/15/2024 11:15 AM SEAT BUILDER [facility]ization [facility] [place] [address] [facility], Primary [facility] Clinic Visit for TB skin test (Primary Dx) Discharge Disposition: Discharged to home or Selfcare 01/15/2024 Travel 01/08/2024 8:00 AM SEAT BUILDER Immunization [facility] [place] [address] [place] [address] [facility], Primary [facility] Clinic Visit for TB skin test (Primary [...] e alcohol) once in a blue pyle. [facility] Utilities Answer Date Recorded In the past 12 months has [employer] electric, gas, oil, or water company threatened [...] Never 10/08/2023 How often do you attend latter day or temple serv ices? Never 10/08/2023 Do you belong to any clubs o r organizations such as latter day groups, unions, fraternal or athletic groups, or [...] Score - Questions 1-9 2 10 10/2023 [facility] of Occupat ional [facility] - Occupational Stress Questionnaire Answer Date [...] were you homeless or living in a [place] health care facility (including now)? No 10/08/2023 Education Answer Date Recorded What is the highest level of school you have completed or the highest degree you have received? Associate degree: occupational, technical, or vocational program 09/19/2022 Sexually Active Control Partners Comments Not Currently I.U.D. Male Comments No Sex and Gender Information Value Date Recorded Sex Assigned at Female 01/26/2023 11:31 PM SEAT BUILDER Legal Sex Female 10:30 PM SEAT BUILDER Gender Identity Female 01/26/2023 11:31 PM SEAT BUILDER Sexual Orientation Not on file Last Filed Vital Signs Vital Sign Reading Time Taken Comments Blood Pressure 113/79 03/07/2024 1:32 PM SEAT BUILDER Pulse 125 03/07/2024 1:32 PM SEAT BUILDER Temperature 36.1 C (96.9 F) 12/25/2023 4:53 PM SEAT BUILDER Respiratory Rate 20 03/07/2024 1:32 PM SEAT BUILDER Oxygen Saturation 97% 03/07/2024 1:32 PM SEAT BUILDER Inhaled Oxygen Concentration - - Weight 68.9 kg (152 lb) 03/07/2024 1:32 PM SEAT BUILDER Height 170.2 cm (5' 7 ) 03/07/2024 1:32 PM SEAT BUILDER Body Mass Index 23.81 03/07/2024 1:32 PM SEAT BUILDER Plan of Treatment Upcoming Encounters Date Type Department Care Team (Late st Contact Info) Description 04/08/2024 6:00 PM SEAT BUILDER Office Visit [facility] [address]2 [place] [address] Gurpreet Arroyo MD [address] [address] Health Maintenance Due Date Last Done Comments [...] symptoms Behavioral Health On track(2021 11:37 AM SEAT BUILDER) No Veronica Díaz, POULTRY HATCHERY LABORER Note: to have reduction of depression symptoms. Goal Reviewed with: patient Readiness to change: Making a change Department associated with goal: [facility] Steps to achieve goal: [...] Procedure Name Priority Date/Time Associated Diagnosis Comments [facility] US BREAST LIMITED RT Routine 04/01/2024 2:24 PM SEAT BUILDER Breast pain, right [facility] DIAG BILATERAL DIGITAL W CAD W DONALDO Routine 04/01/2024 1:31 PM SEAT BUILDER Breast pain, right HSV TYPE II IGG ANTIBODY Routine 03/11/2024 3:27 PM SEAT BUILDER Screening examination for STI HSV TYPE I IGG ANTIBODY Routine 03/11/2024 3:27 PM SEAT BUILDER Screening examination for STI HIV 1 & 2 ANTIBODY & ANTIGEN SCREEN Routine 03/11/2024 3:27 PM SEAT BUILDER Screening examination for STI HERPES SIMPLEX 1 & 2 ANTIBODIES IGG Routine 03/11/2024 3:27 PM SEAT BUILDER Screening examination for STI SYPHILIS IGG/IGM W/REFLEX Routine 03/11/2024 3:27 PM SEAT BUILDER Screening examination for STI HEPATITIS C ANTIBODY Routine 03/11/2024 3:27 PM SEAT BUILDER Screening examination for STI PATHOLOGY CYTOLOGY PERIODICALS CLERK Routine 03/07/2024 2:32 PM SEAT BUILDER Encounter for well woman exam with routine gynecological exam Screening for malignant neoplasm of cervix HUMAN PAPILLOMA VIRUS (HPV) Routine 03/07/2024 2:32 PM SEAT BUILDER Encounter for well woman exam with routine gynecological exam Screening for malignant neoplasm of cervix CHLAMYDIA & GC DNA PROBE Routine 03/07/2024 2:32 PM SEAT BUILDER Screening examination for STI CHLAMYDIA & GC DNA PROBE > 12 Routine 03/07/2024 2:32 PM SEAT BUILDER Screening examination for STI VAGINITIS SCREEN, MOLECULAR Routine 03/07/2024 2:32 PM SEAT BUILDER Vaginal odor TB INTRADERMAL TEST Routine 01/17/2024 Visit for TB skin test INFECTIOUS DISEASE PROCEDURE 01/15/2024 12:00 AM SEAT BUILDER from Last 3 Months Results * SCOT US BREAST LIMITED RT (04/01/2024 2:24 PM SEAT BUILDER) Anatomical Region Laterality Modality breast Right Ultrasound 04/01/2024 12:4 7 PM SEAT BUILDER Narrative 04/02/2024 10:00 AM SEAT BUILDER - SCOT DIAG BILATERAL DIGITAL W CAD [...] signed by: Blessing Darby M.D. ll/:04/01/2024 14:12:14 Bench Worker Helper(s): MONA [place], [facility]; RT Samia(R)(M), [facility] letter sent: Birad 3 Followup Reading location: [facility] OVERALL STUDY BIRADS: Category 3: Probably [...] signed by: Blessing Darby M.D. ll/:04/01/2024 14:12:14 Bench Worker Helper(s): MONA [place], [facility]; RT Samia(R)(M), [facility] letter sent: Birad 3 Followup Reading location: [facility] OVERALL STUDY BIRADS: Category 3: Probably Benign us Carol Mcintosh APRN, MANAGER MEDICARE MARKETING IMG MAMMO ORDERABLES Fin al Result * SCOT DIAG BILATERAL DIGITAL W CAD W DONALDO (04/01/2024 1:31 PM SEAT BUILDER) Anatomical Region Laterality Modality breast Bilateral Mammography 04/01/2024 12:4 7 PM SEAT BUILDER Narrative 04/02/2024 10:00 AM SEAT BUILDER - SCOT DIAG BILATERAL DIGITAL W CAD [...] signed by: Blessing Darby M.D. ll/:04/01/2024 14:12:14 Bench Worker Helper(s): MONA Edmonds, [facility]; RT Samia(R)(M), [facility] letter sent: Birad 3 Followup Reading location: [facility] OVERALL STUDY BIRADS: Category 3: Probably [...] signed by: Blessing Darby M.D. ll/:04/01/2024 14:12:14 Bench Worker Helper(s): MONA [place], [facility]; RT Samia(R)(M), [facility] letter sent: Renae 3 Followup Reading location: [facility] OVERALL STUDY BIRADS: Category 3: Probably Benign us Carol Mcintosh APPRENTICE/LINEMAN, MANAGER MEDICARE MARKETING IMG MAMMO ORDERABLES Fin al Result * HIV 1 & 2 ANTIBODY & ANTIGEN SCREEN (03/11/2024 3:27 PM SEAT BUILDER) HIV 1 & 2 ANTIBODY & ANTIGEN SCREEN NON DETECTED NON DETECTED 03/11/2024 10:22 PM SEAT BUILDER [facility] Blood Venipuncture / Unknown 03/11/2024 3:27 PM SEAT BUILDER 03/11/2024 3:37 PM SEAT BUILDER us Carol Mcintosh APRN, CNP LAB SEND OUTS Final Re sult Performing Organization Address City/[facility]/ZIP Co de Phone Number [facility] [address] [place] [address], [place] * SYPHILIS IGG/IGM W/REFLEX (03/11/2024 3:27 PM SEAT BUILDER) SYPHILIS IGG/IGM Nonreactive Nonreactive 03/11/2024 10:31 PM SEAT BUILDER [facility] Comment: No serologic evidence of infection to Treponema pallidum (syphilis). Repeat testing may be considered in patients with suspected acute or primary syphilis in 2 to 4 weeks. Antibody testing was performed by multiplex flow immunoassay on the BioPlex platform. Blood Venipuncture / Unknown 03/11/2024 3:27 PM SEAT BUILDER 03/11/2024 3:37 PM SEAT BUILDER us Carol Mcintosh APRN MANAGER MEDICARE MARKETING IMMUNOLOGY ORDERABLES Fi nal Result Performing Organization Address [facility] Co de Phone Number [facility] [address] [place] [address], [place] * HSV TYPE II IGG ANTIBODY (03/11/2024 3:27 PM SEAT BUILDER) HSV TYPE 2 IGG AB <0.2 AI 03/11/2024 10:31 PM SEAT BUILDER [facility] Comment: <0.9 Negative. No detectable HSV-2 IgG antibody. 0.9 - 1.0 Equivocal >=1.1 Positive Antibody testing was performed by multiplex flow immunoassay on the BioPlex platform. Blood Venipuncture / Unknown 03/11/2024 3:27 PM SEAT BUILDER 03/11/2024 3:37 PM SEAT BUILDER us Carol Mcintosh APRN, MANAGER MEDICARE MARKETING CHEMISTRY ORDERABLES Fin al Result Performing Organization Address City/[facility] Co de Phone Number [facility] [address] [place] [address], [place] * HSV TYPE I IGG ANTIBODY (03/11/2024 3:27 PM SEAT BUILDER) HSV TYPE 1 IGG AB >8.0 AI 03/11/2024 10:31 PM SEAT BUILDER [facility] Comment: <0.9 Negative. No detectable HSV-1 IgG antibody. 0.9 - 1.0 Equivocal >=1.1 Positive Blood Venipuncture / Unknown 03/11/2024 3:27 PM SEAT BUILDER 03/11/2024 3:37 PM SEAT BUILDER Carol Mcintosh APPRENTICE/LINEMAN, MANAGER MEDICARE MARKETING CHEMISTRY ORDERABLES Fin al Result [facility] [address] [place] [address], [place] * HEPATITIS C ANTIBODY (03/11/2024 3:27 PM SEAT BUILDER) [facility] hepatitis C antibody 0.10 <1 S/CO 03/11/2024 11:28 PM SEAT BUILDER [facility] Comment: Signal/Cutoff ratio < 0.79 is Nondetected Signal/Cutoff ratio 0.80-0.99 is Grayzone Signal/Cutoff ratio > 0.99 is Detected Supplemental assays are recommended if signal/cutoff ratio is >/=1.00. Signal/cutoff ratio result >/= 5.00 is 97% predictive of positivity for recombinant immunoblot assay (RIBA) and will be reported to the [place] Department of Public Health as required. Blood Venipuncture / Unknown 03/11/2024 3:27 PM SEAT BUILDER 03/11/2024 3:36 PM SEAT BUILDER Carol Mcintosh APPRENTICE/LINEMAN, MANAGER MEDICARE MARKETING CHEMISTRY ORDERABLES Fin al Result [facility] [address] [place] [address], [place] * CHLAMYDIA & GC DNA PROBE > 12 (03/07/2024 2:32 PM SEAT BUILDER) [facility] CHLAMYDIA DNA NEGATIVE NEGATIVE 03/08/2024 5:40 AM SEAT BUILDER [facility] Comment: Presumed negative for C. trachomatis. A negative result does not preclude C. trachomatis infection because results are dependent on adequate specimen collection, absence of inhibitors, and sufficient DNA to be detected. This test was performed using GIGI 5800 Real Time PCR. GC DNA NEGATIVE NEGATIVE 03/08/2024 5:40 AM SEAT BUILDER [facility] Comment: Presumed negative for N. gonorrhoeae. A negative result does not preclude N. gonorrhoeae infection because results are dependent on adequate specimen collection, absence of inhibitors, and sufficient DNA to be detected. This test was performed using GIGI 5800 Real Time PCR. Other (Cervix/Endocerv ix/Vaginal) Non-Phlebotomy Collection / Unknown 03/07/2024 2:32 PM SEAT BUILDER 03/07/2024 2:32 PM SEAT BUILDER us Carol Mcintosh APRN, MANAGER MEDICARE MARKETING MICROBIOLOGY - GENERAL O RDERABLES Final Result Performing Organization Address [facility] Co de Phone Number [facility] [address] [place] [address], * (ABNORMAL) VAGINITIS SCREEN, MOLECULAR (03/07/2024 2:32 PM SEAT BUILDER) TRICHOMONAS NOT DETECTED NOT DETECTED 03/08/2024 1:33 AM SEAT BUILDER [facility] BACTERIAL VAGINOSIS DETECTED(A) NOT DETECTED 03/08/2024 1:33 AM SEAT BUILDER [facility] LAURY NOT DETECTED NOT DETECTED 03/08/2024 1:33 AM SEAT BUILDER [facility] Comment: Laury group Not detected with the following possible Laury species: Laury albicans and/or Laury tropicalis and/or Laury parapsilosis and/or Laury dubliniensis LAURY GLABRATA NOT DETECTED NOT DETECTED 03/08/2024 1:33 AM SEAT BUILDER [facility] LAURY KRUSEI NOT DETECTED NOT DETECTED 03/08/2024 1:33 AM SEAT BUILDER [facility] Other VAGINAL STRUCTURE / Unknown Non-Phlebotomy Collection / Unknown 03/07/2024 2:32 PM SEAT BUILDER 03/07/2024 2:32 PM SEAT BUILDER us Carol Mcintosh APRN, MANAGER MEDICARE MARKETING MICROBIOLOGY - GENERAL O RDERABLES Final Result [facility] [address] [place] [address], [place] * PATHOLOGY CYTOLOGY PERIODICALS CLERK (03/07/2024 2:32 PM SEAT BUILDER) SPECIMEN ADEQUACY Satisfactory for evaluation. Endocervical/transf ormation zone component is present. 03/13/2024 8:28 AM SEAT BUILDER [facility] DESCRIPTIVE DIAGNOSIS NEGATIVE FOR INTRAEPITHELIAL LESIONS OR MALIGNANCY. 03/13/2024 8:28 AM SEAT BUILDER [facility] at 0828 SEAT BUILDER OTHER FINDINGS Predominance of coccobacilli present consistent with shift in vaginal helena. Marked, acute inflammation noted. 03/13/2024 8:28 AM SEAT BUILDER [facility] Automated Examination Analysis of this sample has been assisted by an automated imaging and review system ([email or web address] Imaging System, [employer], [place], [place]). This case is further evaluated and finalized by a rotary driller prospecting and/or pathologist. 03/13/2024 8:28 AM SEAT BUILDER [facility] Disclaimer The PAP smear is a screening [...] 65 unless clinically indicated. 03/13/2024 8:28 AM SEAT BUILDER [facility] Case Report Gynecologic Cytology Report Case: [id number] Authorizing Provider: Carol Mcintosh APRN, CNP Collected: 03/07/2024 02:32 PM Ordering Location: [facility] - Received: 03/07/2024 02:32 PM Obstetrics & Gynecology - [place] First Screen: Yolanda Sommers Rescreen: Barbara Mcintosh Specimen: TP Screen, Cervix/Endocervix 03/13/2024 8:28 AM SEAT BUILDER [facility] Other CERVIX UTERI STRUCTURE / Unknown Non-Phlebotomy Collection / Unknown 03/07/2024 2:32 PM SEAT BUILDER 03/07/2024 2:32 PM SEAT BUILDER us Carol Mcintosh APPRENTICE/LINEMAN, MANAGER MEDICARE MARKETING PATHOLOGY/CYTOLOGY ORDER REINA Final Result [facility] [address] [place] [address], * HUMAN PAPILLOMA VIRUS (HPV) (03/07/2024 2:32 PM SEAT BUILDER) HPV TYPE 16 NEGATIVE NEGATIVE 03/10/2024 11:32 AM [facility] Comment: A negative high-risk HPV [...] TYPE 18 NEGATIVE NEGATIVE 03/10/2024 11:32 AM [facility] Comment: A negative high-risk HPV [...] TYPES, PCR NEGATIVE NEGATIVE 03/10/2024 11:32 AM SEAT BUILDER [facility] Comment: The following Other High Risk types [...] SCREENING OR DIAGNOSTIC SCREENING 03/10/2024 11:32 AM SEAT BUILDER [facility] Other Non-Phlebotomy Collection / Unknown 03/07/2024 2:32 PM SEAT BUILDER 03/07/2024 2:32 PM SEAT BUILDER N[facility]ative [facility] - 03/10/2024 11:32 AM SEAT BUILDER This test was performed using GIGI 5800 Real Time PCR. Carol Mcintosh APRN, MANAGER MEDICARE MARKETING LAB SEND OUTS Final Re sult [facility] [address] [place] [address], [facility] [address] [place] [address] * TB INTRADERMAL TEST (01/17/2024) TB SKIN TEST Negative 01/17/2024 Gurpreet Arroyo MD POINT OF CARE TESTING (MANUAL ) Final Result * INFECTIOUS DISEASE PROCEDURE (01/15/2024 12:00 AM SEAT BUILDER) 01/15/2024 Provider Scan GEN ORDERS Final Result SCAN from Last 3 Months Insurance [place] [id number] Care Teams Catalyst Manufacturing Operator Relationship Specialty Start Date End Date Gurpreet Arroyo MD #2 [facility] [address] [place] [address] PCP - General Family Medicine 10/09/23 [place] [id number] [address] Obstetrics & Gynecology 02/22/21 Nam Weber APRN, MANAGER MEDICARE MARKETING #[address] [place] [address] Nurse Practitioner Advanced Practice Nurse 01/16/23 Audi Gandara MD #2 [facility] [address] [place] [address] Consulting Physician Urology 09/25/23 Carol Mcintosh APRN, MANAGER MEDICARE MARKETING #2 [place] [address] Nurse Practitioner Advanced Practice Nurse 12/27/23
--- OUTSIDE RECORDS SUMMARY | 2024-04-06 07:41 | XMS_ITS | Encounter Summary ---
Author Organization [facility] Address [address] [place] [address] Phone Care Team Providers Care Hedge Fund Principal Name Role Phone Lillie Worthy MD Unavailable Nam Weber HORSE DOCTOR, MANAGEMENT LECTURER Unavailable [phone] Gurpreet Arroyo MD Primary Care Provider [phone] Audi Gandara MD Unavailable [phone] Carol Mcintosh HORSE DOCTOR, MANAGEMENT LECTURER Unavailable [phone] Encounter Details Date Type Department Care Team (Late st Contact Info) Description 03/12/2024 Results Follow-Up [facility] - Family Medicine [facility] [address] [place] [id number] Carol Mcintosh, HORSE DOCTOR, MANAGEMENT LECTURER [address] [place] [address] Bacterial vaginosis (Primary Dx) Social History Tobacco [...] Never 10/08/2023 How often do you attend evangelical or judaism serv ices? Never 10/08/2023 Do you belong to any clubs o r organizations such as evangelical groups, unions, fraternal or athletic groups, or [...] Total Score - Questions 1-9 2 11/13 [facility] of Occupat ional [facility] - Occupational Stress Questionnaire Answer Date Recorded [...] any time in the past 12 m [facility], were you homeless or living in a fpc (including now)? No 10/08/2023 Education Answer Date Recorded What is the highest level of school you have completed or the highest degree you have received? Associate degree: occupational, technical, or vocational program 09/19/2022 Sexually Active Control Partners Comments Not Currently I.U.D. Male Comments No Sex and Gender Information Value Date Recorded Sex Assigned at Female 01/26/2023 11:31 PM [employer] Legal Sex Female 10:30 PM [employer] Gender Identity Female 01/26/2023 11:31 PM [employer] Sexual Orientation Not on file documented as of this encounter Plan of Treatment Upcoming Encounters Date Type Department Care Team (Late st Contact Info) Description 04/08/2024 6:00 PM [employer] [facility] Visit [facility] [address] [place] [address] Gurpreet Arroyo MD [address] [address] documented as of this encounter Goals Goal Patient Goal Type Associated Problems Recent Progress Patient-Stated? Author Patient to report a decrease in the intensity and frequency of depressive symptoms Behavioral Health On track(2021 11:37 AM [employer]) No Veronica Díaz, CERTIFIED MEDICAL ASST Note: to have reduction of depression symptoms. Goal Reviewed with: patient Readiness to change: Making a change Department associated with goal: [facility] Steps to achieve [...] documented as of this encounter Care Teams Hedge Fund Principal Relationship Specialty Start Date End Date Gurpreet Arroyo MD #[address] [address] PCP - General Family Medicine 10/09/23 [place] [id number] [address] Obstetrics & Gynecology 02/22/21 Nam Weber APRN, MANAGEMENT LECTURER [address] [place] [address] Nurse Practitioner Advanced Practice Nurse 01/16/23 Audi Gandara MD #[address] [address] Consulting Physician Urology 09/25/23 Carol Mcintosh APRN, MANAGEMENT LECTURER #[address] [place] [address] Nurse Practitioner Advanced Practice Nurse 12/27/23 documented as of this encounter
--- OUTSIDE RECORDS SUMMARY | 2024-04-06 07:41 | XMS_ITS | Encounter Summary ---
Author Organization [facility] Address [address] [place] [address] Phone Care Team Providers Care Book Trimmer Name Role Phone Lillie Worthy MD Unavailable Nam Weber ENTEROSTOMAL THERAPY NURSE, WHITE LEAD GRINDER Unavailable [phone] Gurpreet Arroyo MD Primary Care Provider [phone] Audi Gandara MD Unavailable [phone] Carol Mcintosh ENTEROSTOMAL THERAPY NURSE, WHITE LEAD GRINDER Unavailable [phone] Encounter Details Date Type Department Care Team (Late st Contact Info) Description 04/02/2024 Results Follow-Up [facility] - Family Medicine [facility] [address] [place] [id number] Carol Mcintosh, ENTEROSTOMAL THERAPY NURSE, WHITE LEAD GRINDER [address] [place] [address] Social History Tobacco Use Types Packs/Day Years Used Date Smoking Tobacco: Former Cigarettes 0.3 5.2 0 02/12/2006 - 02/12/2011 Smokeless Tobacco: Never Alcohol Use Standard Drinks/Week Comments Not Currently 1 (1 standard drink = 0.6 oz pur e alcohol) once in a blue pyle. [facility] Utilities Answer Date Recorded In the [...] Never 10/08/2023 How often do you attend christian or protestant serv ices? Never 10/08/2023 Do you belong to any clubs o r organizations such as christian groups, unions, fraternal or athletic groups, or [...] Total Score - Questions 1-9 2 11/13 [facility] - Occupational Stress [...] any time in the past 12 m [facility], were you homeless or living in [...] Sex Assigned at Female 01/26/2023 11:31 PM AGENCY SALES DIRECTOR Legal Sex Female 10:30 PM AGENCY SALES DIRECTOR Gender Identity Female 01/26/2023 11:31 PM AGENCY SALES DIRECTOR Sexual Orientation Not on file documented as of this encounter Plan of Treatment Upcoming Encounters Date Type Department Care Team (Late st Contact Info) Description 04/08/2024 6:00 PM AGENCY SALES DIRECTOR Office Visit [facility] - Family Medicine [facility] [address] [place] [address] Gurpreet Arroyo MD [id number] [address] documented as of this encounter Goals Goal Patient Goal Type Associated Problems Recent Progress Patient-Stated? Author Patient to report a decrease in the intensity and frequency of depressive symptoms Behavioral Health On track(2021 11:37 AM AGENCY SALES DIRECTOR) No Veronica Díaz, [place] COOK Note: to have reduction of depression symptoms. Goal Reviewed with: patient Readiness to change: Making a change Department associated with goal[facility] Steps to achieve goal: [...] documented as of this encounter Care Teams Book Trimmer Relationship Specialty Start Date End Date Gurpreet Arroyo MD [address] [facility] [address] [place] [address] PCP - General Family Medicine 10/09/23 [place] [id number] [address] Obstetrics & Gynecology 02/22/21 Nam Weber APRN, WHITE LEAD GRINDER [address] [place] [address] Nurse Practitioner Advanced Practice Nurse 01/16/23 Audi Gandara MD [address]2 [facility] [address] [place] [address] Consulting Physician Urology 09/25/23 Carol Mcintosh APRN, WHITE LEAD GRINDER [address] [place] [address] Nurse Practitioner Advanced Practice Nurse 12/27/23 documented as of this encounter
--- OUTSIDE RECORDS SUMMARY | 2024-04-06 07:41 | XMS_ITS | Encounter Summary ---
Author Organization [facility] Address [address] [place] [address] Phone Care Team Providers Care Business Intelligence Manager Name Role Phone Raffaele Melton MD Primary Care Provider [phone] Lillie Worthy MD Unavailable Nam Weber APRN, TEACHER PRIVATE Unavailable + [phone] Provider, None Primary Care Provider Unavailabl Gurpreet Scales MD Primary Care Provider [phone] Audi Gandara MD Unavailable [phone] Carol Mcintosh MANAGER OF QUALITY, TEACHER PRIVATE Unavailable [phone] Reason for Visit * Reason Comments Medication Refill Encounter Details Date Type Department Care Team (Late st Contact Info) Description 11/18/2022 Refill [facility] - Family Medicine - [place] [address] [place] [address] Gia Jj APRN, TEACHER PRIVATE [address] [address] Medication Refill Social History Tobacco [...] Sex Assigned at Female 01/26/2023 11:31 PM ARCHIVAL RECORDS CLERK Legal Sex Female 10:30 PM ARCHIVAL RECORDS CLERK Gender Identity Female 01/26/2023 11:31 PM ARCHIVAL RECORDS CLERK Sexual Orientation Not on file COVID-19 Exposure [...] Varela 08/17/22 Office Visit Gia Jj APRN, TEACHER PRIVATE [facility] Showing recent visits within past 182 [...] st Contact Info) Description 04/08/2024 6:00 PM ARCHIVAL RECORDS CLERK Office Visit [facility] - Family Medicine [facility] [address] [place] [address] Gurpreet Arroyo MD [id number] [address] documented as of this encounter Goals Goal Patient Goal Type Associated Problems Recent Progress Patient-Stated? Author Patient to report a decrease in the intensity and frequency of depressive symptoms Behavioral Health On track(2021 11:37 AM ARCHIVAL RECORDS CLERK) No Veronica Díaz, SUSTAINABILITY OFFICER Note: to have reduction of depression symptoms. Goal Reviewed with: patient Readiness to change: Making a change Department associated with goal: [facility] Steps to achieve [...] 19 01/26/2023 01/30/2023 02/09/2023 12:1 6 AM ARCHIVAL RECORDS CLERK Assessment Noted Time PHQ-9 Depression Total Score: 23 01/25/ 022 2:00 PM ARCHIVAL RECORDS CLERK documented as of this encounter Care Teams Business Intelligence Manager Relationship Specialty Start Date End Date Raffaele Melton MD PCP - General Family Medicine 08/18/20 08/27/23 Provider, None [place] PCP - General 08/28/23 10/08/23 Gurpreet Arroyo MD [address]2 [facility] [address] [place] [address] PCP - General Family Medicine 10/09/23 [place] [address] [address] Obstetrics & Gynecology 02/22/21 Nam Weber APRN, TEACHER PRIVATE [address] [place] [address] Nurse Practitioner Advanced Practice Nurse 01/16/23 Audi Gandara MD [address] [facility] [address] [place] [address] Consulting Physician Urology 09/25/23 Carol Mcintosh APRN, TEACHER PRIVATE [address] [place] [address] Nurse Practitioner Advanced Practice Nurse 12/27/23 documented as of this encounter
[2024-04-06] MEDS: IBUPROFEN 600 MG TABLET PO (07:49)
[2024-04-06] MEDS: ACETAMINOPHEN 500 MG TABLET 1000 MG PO (07:50)
[2024-04-06 07:55] LABS: Influenza A QL RT-PCR Positive (Negative); Influenza B QL RT-PCR Negative (Negative); RSV RNA, RT-PCR Negative (Negative); SARS-CoV-2 RNA PCR Negative (Negative)
== END 2024-04-06 08:30 | disposition home or self-care (01) ==
PROVIDERS: Emergency Medicine; Emergency Provider Emergency Medicine; PCP Internal Medicine
DX: J10.1 Influenza due to other identified influenza virus with other respiratory manifestations (principal); F90.9 Attention-deficit hyperactivity disorder, unspecified type; F17.290 Nicotine dependence, other tobacco product, uncomplicated; Z20.822 Contact with and (suspected) exposure to COVID-19
CPT/HCPCS: 71045; 87637; 99283; A9270